=== PATIENT | male | born 1990 | race Caucasian/White ===

== ENCOUNTER 2019-07-15 14:00 | Inpatient (IN) | payer OTHER ==
[~2019-07-15 14:00] MED LIST: Acetaminophen 1,000 MG/100 ML Infusion Bottle IV ONE; Dexamethasone 4 MG/ML 5 ML MDV IVPUSH ONE; Diatrizoate Meglumine/Diatrizoate Sodium 37% 30 ML Bottle PO ONE; Glycopyrrolate 0.2 MG/ML 5 ML MDV IV ONE; HYDROmorphone 2 MG/ML SDV IV ONE; Iopamidol 755 Mg/ML 100 ML Bottle IV ONE; Ketamine 500 mg/10 ML MDV IV ONE; Lactated Ringers 1,000 ML IV ONE; Midazolam 1 MG/ML 2 ML SDV IV ONE; Ondansetron 4 MG/2 ML SDV IVPUSH ONE; Phenylephrine 1% 10 MG/ML SDV IV ONE; Propofol 200 MG/20 ML SDV IV ONE; Rocuronium 50 MG/5 ML Vial IV ONE; Succinylcholine 200 MG/10 ML MDV IV ONE; fentaNYL 100 MCG/2 ML SDV IV ONE
[2019-07-15] MEDS ORDERED: Ertapenem 1 GM in Sodium Chloride 0.9% 50 ML IV ONE ×6 (14:13→15:00)
[2019-07-15] MEDS: Lactated Ringers 1,000 ML IV SCH ×2 (14:30→20:32)
--- NOTE | 2019-07-15 14:41 | CT ---
INDICATION: Right lower quadrant abdominal pain times 6 days, low grade fever, white count 16,000. CT ABDOMEN AND PELVIS WITH CONTRAST: Spiral 3.75 mm axial sections were obtained through the abdomen and pelvis with oral and IV contrast (87 mL Isovue 370 at 2.5 mL/second), with sagittal and coronal reconstructions, 07/15/19 - no comparisons. Total exam DLP = 585.49 mGy-cm. The lower lung hicks and pleural spaces visualized appeared normal. The upper abdominal organs, including the liver, gallbladder, adrenals, kidneys , spleen, and pancreas appeared normal. No dilatation of the common bile duct was noted. No evidence of free air or definite bowel obstruction was identified, except at the appendix, which is markedly enlarged with periappendiceal fat stranding extending from the appendix to the pericolic gutter and into the pelvis with some very minimal fluid in the posterior pelvis. Findings are compatible with appendicitis with a 15 mm appendicolith and a 32 mm transverse diameter appendix. The length of the appendix is approximately 74 mm. Findings are felt to be compatible with appendicitis and fairly localized peritonitis. No other organomegaly, mass lesions, or free fluid collections were identified. No free air was seen. No abscess was identified. Urinary bladder was unremarkable. IMPRESSION: Findings are compatible with acute appendicitis with appendicolith and mostly localized peritonitis, although some minimal free fluid is noted in the pelvis with fat stranding extending into the pericolic gutter. Report was called to Dr. Giovani Quick and Adrienne Hargrove NP at approximately 1348 hours on 07/15/19. [facility]ITALNoah
--- NOTE | 2019-07-15 16:07 | PCM.HP.2 ---
H&P History of Present Illness - General Date of Service: 07/15/19 Admit Problem/Dx: Admission Diagnosis/Problem Admission Diagnosis/Problem Appendicitis - History of Present Illness Initial Comments - Free Text/Narative: 28 yo wm with a 6 day hx of abd discomfort. Located primarily in the RLQ. Attributed to constipation. Seen in clinic and was noted to have an elevated wbc. CT scan demonstrates an inflammed appendix and fecalith. There was no evidence of any overt abscess. Does note some fever, chills. Pain is excerbated by motion. Right Lower Abdomen Pain Score (Numeric/FACES): 7 - Related Data Allergies/Adverse Reactions: Allergies Allergy/AdvReac Type Severity Reaction Status Date / Time No Known Allergies Allergy Verified 07/15/19 12:50 Past Medical History - Past Surgical History HEENT Surgical History: Reports: Other (See Below) Other HEENT Surgeries/Procedures: tubes in ears as a kid Musculoskeletal Surgical History: Reports: Other (See Below) Other Musculoskeletal Surgeries/Procedures:: fx right clavical Social & Family History - Family History Family Medical History: Noncontributory H&P Review of Systems - Review of Systems: Review Of Systems: See Below General: Reports: Fever, Chills HEENT: Reports: No Symptoms Pulmonary: Reports: No Symptoms Cardiovascular: Reports: No Symptoms Gastrointestinal: Reports: Abdominal Pain, Constipation Musculoskeletal: Reports: Back Pain Skin: Reports: No Symptoms Psychiatric: Reports: No Symptoms Neurological: Reports: No Symptoms Exam - Exam Exam: See Below () - Vital Signs Vital Signs: Last Vital Signs Temp 98.7 F 07/15/19 14:00 Pulse 112 H 07/15/19 14:00 Resp 18 07/15/19 14:00 BP 125/89 07/15/19 14:00 Pulse Ox 95 07/15/19 14:00 Weight: 77.746 kg - Exam General: Alert, Oriented Lungs: Clear to Auscultation, Normal Respiratory Effort Cardiovascular: Regular Rate, Regular Rhythm GI/Abdominal Exam: Normal Bowel Sounds, Tender Back Exam: Normal Inspection Skin: Warm, Dry, Intact *Q Meaningful Use (ADM) - VTE *Q VTE Pharmacological Contraindications *Q: Patient Scheduled Surgery - Problem List (1) Acute appendicitis SNOMED Code(s): 10561850 ICD Code: K35.80 - UNSPECIFIED ACUTE APPENDICITIS Status: Acute Current Visit: Yes Qualifiers: Acute appendicitis type: with localized peritonitis Appendicitis gangrene presence: unspecified whether gangrene present Appendicitis perforation presence: unspecified whether perforation present Appendicitis abscess presence: unspecified whether abscess present Qualified Code(s): K35.30 - Acute appendicitis with localized peritonitis, without perforation or gangrene Problem List Initiated/Reviewed/Updated: Yes Orders Last 24hrs: Active Orders 24 hr Category Date Time Status Patient Status [ADT] Routine ADT 07/15/19 14:13 Active Patient to Empty Bladder [RC] ASDIRECTED Care 07/15/19 14:13 Active RT Incentive Spirometry [RC] ASDIRECTED Care 07/15/19 14:13 Active Verify Patient Consent Obtain [RC] ASDIRECTED Care 07/15/19 14:13 Active Nothing Per Oral Diet [DIET] Diet 07/15/19 Lunch Ordered Lactated Ringers [Ringers, Lactated] 1,000 ml Med 07/15/19 14:15 Active IV ASDIRECTED Sequential Compression Device [OM.PC] Routine Oth 07/15/19 14:13 Ordered Resuscitation Status Routine Resus Stat 07/15/19 14:13 Ordered Medication Orders Lactated Ringer's (Ringers, Lactated) 1,000 mls @ 150 mls/hr IV ASDIRECTED [facility] Assessment/Plan Comment:: appendectomy. will start with lap approach if necessary will convert to an open procedure. procedure and risks explained to the patient to include bleeding, infection conversion to open. He expressed understanding and asks us to proceed.
[2019-07-15] MEDS ORDERED: Morphine 2 MG/ML Syringe IVPUSH PRN (16:16)
[2019-07-15] MEDS ORDERED: Bupivacaine 0.5% 30 ML SDV INJECT ONE (17:32)
[2019-07-15] MEDS ORDERED: Lidocaine 1% with EPINEPHrine 1:100,000 20 ML MDV INJECT ONE (17:32)
--- NOTE | 2019-07-15 19:00 | PCM.OPNOTE ---
- General Post-Op/Procedure Note Date of Surgery/Procedure: 07/15/19 Operative Procedure(s): appendectomy Findings: ruptured retrocecal appendix Pre Op Diagnosis: acute appendicitis Post-Op Diagnosis: ruptured appendix Anesthesia Technique: General ET Tube, Local (5 ml 1 % lido with epi/0.5% buvipcaine) Primary Surgeon: Giovani Quick Anesthesia Provider: Janet Mckeon Pathology: appendix Fluid Replacement, Intraop: 1,600 EBL in mLs: 75 Surgical Drain/Tube Type: Pradeep Drain Complications: had to be converted to open due to adhesions Condition: Good Free Text/Narrative:: see dictation
[2019-07-15] MEDS ORDERED: Acetaminophen 1,000 MG in Premix Bag 1 BAG IV SCH (20:00)
[2019-07-15] MEDS: HYDROmorphone 2 MG/ML SDV IVPUSH PRN (21:15)
--- NOTE | 2019-07-16 01:17 | OR ---
DATE OF OPERATION: 07/15/2019 SURGEON: Giovani Quick MD PROCEDURE PERFORMED: Appendectomy. INDICATIONS FOR PROCEDURE: This is a 28-year-old white male, who presents with a 6-day history of right lower quadrant abdominal pain, leukocytosis, and evidence of acute appendicitis on CT scan. CT scan did not demonstrate any evidence of abscess. The patient was offered and accepted laparoscopic appendectomy with the understanding that we may have to convert to open if inflammation was severe enough. DESCRIPTION OF OPERATION: After an excellent general anesthetic was administered via endotracheal tube, the patient was prepped and draped in the usual sterile manner. A 1:1 mixture of 1% lidocaine with epinephrine, and 0.5% bupivacaine was used to infiltrate our trocar sites. We started at the level of the umbilicus, and after infiltration a small vertical midline incision was carried out. Blunt dissection was carried out exposing the midline fascia. Two stay sutures of 0 Vicryl were placed on either side and the fascia was elevated. An incision was made through the midline, and after entering the abdominal cavity, a 10.5 mm Fe trocar was inserted. The patient's abdomen was insufflated to 15 mmHg. A 5 mm port was placed approximately 3 cm below the periumbilical site. An additional port was placed in the right lower quadrant, following technique was used. Full thickness infiltration was carried out. Small stab incision was made in the skin after infiltrating our local. A total of 5 mL was used and the trocars were inserted. The cecum was readily identified as well as the base of the appendix. We were able to grasp the base of the appendix and careful dissection was carried out laterally. We were able to mobilize approximately 2 cm of the appendix. We did encounter some pus. Beyond this point, attempts to mobilize the appendix were not successful due to the adhesions. At this point, it became readily apparent that we would have to convert to open. The pneumoperitoneum was released. The umbilical defect was closed with a [id number] 0 Vicryl and 2 stay sutures close to each other. An incision was then made over McBurney's point using a #15 scalpel blade. The underlying subcu fat was divided using electrocautery. The fascia covering the external oblique was exposed. This was incised, and the muscle fibers were split in the direction of the fibers. The underlying fascia and the internal oblique were exposed. The process was repeated. The peritoneum was exposed, incised, and the abdominal cavity was entered. We were able at this point to insert a finger and gently mobilized a markedly inflamed appendix, delivered into the operative field. In the process of doing this, there was some bleeding from what appeared to be the mesoappendix. This was able to be controlled with a clamp. The Endo-CARLOS with 2.5 mm load was then fired across the base of the appendix. Several what appeared to be bleeding points were controlled with a [id number] 3-0 Vicryl. After ensuring excellent hemostasis, the abdominal cavity and pelvis were then irrigated until clear. A 5 mm round Pradeep drain was then placed in the right colic gutter and down into the pelvis, and exited out through the inferior trocar port in the midline, was sewn into position with a 3- 0 Vicryl. The fascia overlying the peritoneum and underlying fascia covering the transversalis was closed with a running 0 Vicryl, and then the overlying 2 fascial layers were approximated again with 0 Vicryl. [place] were used to approximate the skin in the largest incisions, one by the periumbilical area and in the right lower quadrant. These were then packed with Betadine-soaked gauze. A staple was used to close the 5 mm port that was placed in the right lower quadrant. Dressing was applied. Needle, sponge, and instrument counts were reported as correct. The patient was taken to recovery room in good condition. /[id number] FAITH/MARLON
[2019-07-16] MEDS: Lactated Ringers 1,000 ML IV SCH ×3 (02:38→18:06)
[2019-07-16] MEDS: HYDROmorphone 2 MG/ML SDV IVPUSH PRN ×4 (02:50→20:30)
[2019-07-16] MEDS ORDERED: Lidocaine 2% HCl 6 ML JEL.PF.APP ONE (03:46)
[2019-07-16] MEDS: Acetaminophen 1,000 MG in Premix Bag 1 BAG IV SCH ×3 (06:05)
--- NOTE | 2019-07-16 09:22 | PCM.SURGPN ---
- General Info Date of Service: 07/16/19 POD#: 1 Functional Status: Reports: Pain Controlled, Urinating (had to be straight cathed good urine volume ), Incentive Spirometry - Review of Systems General: Denies: Fever HEENT: Reports: Other (dry) Pulmonary: Reports: No Symptoms Cardiovascular: Reports: No Symptoms Gastrointestinal: Reports: Abdominal Pain. Denies: Flatus Genitourinary: Reports: No Symptoms - Patient Data Vitals - Most Recent: Last Vital Signs Temp 97.6 F 07/16/19 07:58 Pulse 84 07/16/19 07:58 Resp 16 07/16/19 07:58 BP 123/80 07/16/19 07:58 Pulse Ox 97 07/16/19 07:58 Weight - Most Recent: 77.746 kg I&O - Last 24 Hours: Intake & Output 07/15/19 07/16/19 07/16/19 22:59 06:59 14:59 Intake Total 1860 1261 Output Total 725 30 Balance 1860 536 -30 Lab Results Last 24 Hrs: Laboratory Results - last 24 hr 07/16/19 07/16/19 Range/Units 06:15 06:15 WBC 17.4 H (4.5-12.0) X10-3/uL RBC 4.45 (4.30-5.75) x10(6)uL Hgb 12.3 L (13.5-17.8) g/dL Hct 35.5 (30.0-51.3) % MCV 79.7 L (80-96) fL MCH 27.6 L (27.7-33.6) pg MCHC 34.6 (32.2-35.4) g/dL RDW 11.7 (11.5-15.5) % Plt Count 260 (125-369) X10(3)uL MPV 8.4 (7.4-10.4) fL Add Manual Diff Yes Neutrophils % (Manual) 81 (46-82) % Band Neutrophils % 3 (0-6) % Lymphocytes % (Manual) 5 L (13-37) % Monocytes % (Manual) 11 (4-12) % Sodium 135 (135-145) mmol/L Potassium 4.6 (3.5-5.3) mmol/L Chloride 98 L (100-110) mmol/L Carbon Dioxide 29 (21-32) mmol/L BUN 9 (7-18) mg/dL Creatinine 1.0 (0.70-1.30) mg/dL Est Cr Clr Drug Dosing 111.94 mL/min Estimated GFR (MDRD) > 60 (>60) BUN/Creatinine Ratio 9.0 (9-20) Glucose 124 H (80-116) mg/dL Calcium 8.8 (8.6-10.2) mg/dL Med Orders - Current: Current Medications Hydromorphone HCl (Dilaudid) 2 mg IVPUSH Q1H PRN PRN Reason: Pain (severe 7-10) Last Admin: 07/16/19 08:52 Dose: 2 mg Lactated Ringer's (Ringers, Lactated) 1,000 mls @ 150 mls/hr IV ASDIRECTED [facility] Last Admin: 07/16/19 02:38 Dose: 150 mls/hr Ertapenem 1 gm/ Sodium (Chloride) 50 mls @ 100 mls/hr IV Q24H [facility] Acetaminophen 1,000 mg/ Premix 100 mls @ 400 mls/hr IV Q6H [facility] Stop: 07/17/19 00:01 Last Admin: 07/16/19 06:05 Dose: 400 mls/hr Ondansetron HCl (Zofran) 4 mg IVPUSH Q6H PRN PRN Reason: Nausea/Vomiting Discontinued Medications Bupivacaine HCl (Marcaine 0.5%) 10 ml INJECT .STK-MED ONE Stop: 07/15/19 17:33 Last Admin: 07/15/19 17:32 Dose: 10 ml Diatrizoate Meglum/Diatrizoate Sod (Gastrografin 37%) 30 ml PO . DIRECTED ONE Stop: 07/15/19 12:52 Last Admin: 07/15/19 13:34 Dose: 30 ml Ertapenem 1 gm/ Sodium (Chloride) 50 mls @ 100 mls/hr IV ONETIME ONE Stop: 07/15/19 15:29 Last Admin: 07/15/19 16:00 Dose: 100 mls/hr Acetaminophen 1,000 mg/ Premix 100 mls @ 400 mls/hr IV Q6H [facility] Stop: 07/16/19 20:01 Last Admin: 07/15/19 22:34 Dose: Not Given Iopamidol (Isovue-370 (76%)) 100 ml IV . DIRECTED ONE Stop: 07/15/19 12:52 Last Admin: 07/15/19 13:34 Dose: 87 ml Lidocaine HCl (Glydo) 6 ml .XX STAT ONE Stop: 07/16/19 03:47 Last Admin: 07/16/19 04:00 Dose: 6 ml Lidocaine/Epinephrine (Xylocaine 1% With Epinephrine 1:100,000) 10 ml INJECT .STK-MED ONE Stop: 07/15/19 17:33 Last Admin: 07/15/19 17:32 Dose: 10 ml Morphine Sulfate (Morphine) 1 mg IVPUSH Q1H PRN PRN Reason: Pain - Exam Wound/Incisions: Drainage (of betadine no bleeding ) General: Alert, Oriented Lungs: Clear to Auscultation, Normal Respiratory Effort Cardiovascular: Regular Rate, Regular Rhythm GI/Abdominal Exam: Tender (over incision site ), Abnormal Bowel Sounds ( hypoactive ) Skin: Warm, Dry, Intact - Problem List & Annotations (1) Acute appendicitis SNOMED Code(s): 44373499 Code(s): K35.80 - UNSPECIFIED ACUTE APPENDICITIS Status: Acute Current Visit: Yes Qualifiers: Acute appendicitis type: with localized peritonitis Appendicitis gangrene presence: unspecified whether gangrene present Appendicitis perforation presence: unspecified whether perforation present Appendicitis abscess presence: unspecified whether abscess present Qualified Code(s): K35.30 - Acute appendicitis with localized peritonitis, without perforation or gangrene - Problem List Review Problem List Initiated/Reviewed/Updated: Yes - My Orders Last 24 Hours: Active Orders 24 hr Category Date Time Status Patient Status [ADT] Routine ADT 07/15/19 14:13 Active Ambulate [RC] .TID Care 07/15/19 18:53 Active Drain Management [RC] QSHIFT Care 07/15/19 18:54 Active Head of Bed Elevation [RC] ASDIRECTED Care 07/15/19 18:53 Active Notify Provider Vital Signs [RC] PRN Care 07/15/19 18:54 Active Oxygen Therapy [RC] PRN Care 07/15/19 18:53 Active RT Incentive Spirometry [RC] ASDIRECTED Care 07/15/19 14:13 Active RT Incentive Spirometry [RC] Q2HWA Care 07/15/19 18:53 Active Urinary Catheter Assessment [RC] QSHIFT Care 07/16/19 03:45 Active Urinary Catheter Insertion [Insert Urinary Catheter] [ Care 07/16/19 03:44 Ordered OM.PC] Stat Vital Signs [RC] Q4HR Care 07/15/19 18:53 Active Nothing Per Oral Diet [DIET] Diet 07/15/19 Lunch Active Acetaminophen [Ofirmev] 1,000 mg Med 07/16/19 00:00 Active Premix Bag 1 bag IV Q6H Ertapenem [INVanz] 1 gm Med 07/16/19 16:00 Active Sodium Chloride 0.9% [Normal Saline] 50 ml IV Q24H HYDROmorphone [Dilaudid] Med 07/15/19 18:53 Active 2 mg IVPUSH Q1H PRN Lactated Ringers [Ringers, Lactated] 1,000 ml Med 07/15/19 14:15 Active IV ASDIRECTED Ondansetron [Zofran] Med 07/15/19 18:53 Active 4 mg IVPUSH Q6H PRN Sequential Compression Device [OM.PC] Routine Oth 07/15/19 14:13 Ordered Resuscitation Status Routine Resus Stat 07/15/19 14:13 Ordered Medication Orders Hydromorphone HCl (Dilaudid) 2 mg IVPUSH Q1H PRN PRN Reason: Pain (severe 7-10) Last Admin: 07/16/19 08:52 Dose: 2 mg Admin: 07/16/19 02:50 Dose: 2 mg Admin: 07/15/19 21:15 Dose: 2 mg Lactated Ringer's (Ringers, Lactated) 1,000 mls @ 150 mls/hr IV ASDIRECTED [facility] Last Admin: 07/16/19 02:38 Dose: 150 mls/hr Infusion: 07/16/19 02:38 Dose: 150 mls/hr Admin: 07/15/19 20:32 Dose: 150 mls/hr Infusion: 07/15/19 20:32 Dose: 150 mls/hr Admin: 07/15/19 14:30 Dose: 150 mls/hr Ertapenem 1 gm/ Sodium (Chloride) 50 mls @ 100 mls/hr IV Q24H [facility] Acetaminophen 1,000 mg/ Premix 100 mls @ 400 mls/hr IV Q6H [facility] Stop: 07/17/19 00:01 Last Admin: 07/16/19 06:05 Dose: 400 mls/hr Infusion: 07/16/19 00:15 Dose: 400 mls/hr Admin: 07/16/19 00:00 Dose: 400 mls/hr Ondansetron HCl (Zofran) 4 mg IVPUSH Q6H PRN PRN Reason: Nausea/Vomiting - Assessment Assessment (Free Text/Narrative):: pod #1 unremarkable exam given clinical scenario - Plan Plan (Free Text/Narrative):: continue iv fluids antibiotics ice chips no advancement of diet will start toradol
[2019-07-16] MEDS ORDERED: Lactated Ringers 1,000 ML IV ONE (09:35)
[2019-07-16] MEDS: Ketorolac 30 MG/ML SDV IVPUSH SCH ×3 (10:14→21:45)
[2019-07-16] MEDS ORDERED: Lidocaine 2% HCl 6 ML JEL.PF.APP MM ONE (11:37)
[2019-07-16] MEDS: Ertapenem 1 GM in Sodium Chloride 0.9% 50 ML IV SCH (15:56)
[2019-07-16] MEDS: Ondansetron 4 MG/2 ML SDV IVPUSH PRN (17:42)
[2019-07-17] MEDS: Lactated Ringers 1,000 ML IV SCH ×2 (00:41→07:38)
[2019-07-17] MEDS: Ketorolac 30 MG/ML SDV IVPUSH SCH ×4 (03:30→21:46)
[2019-07-17] MEDS: HYDROmorphone 2 MG/ML SDV IVPUSH PRN (04:48)
[2019-07-17] MEDS ORDERED: Lactated Ringers 1,000 ML IV ONE (06:17)
--- NOTE | 2019-07-17 09:44 | PCM.SURGPN ---
- General Info Date of Service: 07/17/19 POD#: 2 Functional Status: Reports: Pain Controlled, Ambulating, Incentive Spirometry - Review of Systems Pulmonary: Reports: No Symptoms Cardiovascular: Reports: No Symptoms Gastrointestinal: Reports: Abdominal Pain, Flatus (reports a little flatus ) Skin: Reports: No Symptoms Neurological: Reports: No Symptoms - Patient Data Vitals - Most Recent: Last Vital Signs Temp 99 F 07/17/19 08:00 Pulse 104 H 07/17/19 08:00 Resp 24 H 07/17/19 08:00 BP 128/86 07/17/19 08:00 Pulse Ox 94 L 07/17/19 08:00 Weight - Most Recent: 77.746 kg I&O - Last 24 Hours: Intake & Output 07/16/19 07/17/19 07/17/19 22:59 06:59 14:59 Intake Total 1090 1244 Output Total 175 230 50 Balance 915 1014 -50 Lab Results Last 24 Hrs: Laboratory Results - last 24 hr 07/17/19 Range/Units 06:20 WBC 13.2 H (4.5-12.0) X10-3/uL RBC 4.30 (4.30-5.75) x10(6)uL Hgb 11.8 L (13.5-17.8) g/dL Hct 34.9 (30.0-51.3) % MCV 81.1 (80-96) fL MCH 27.4 L (27.7-33.6) pg MCHC 33.7 (32.2-35.4) g/dL RDW 12.0 (11.5-15.5) % Plt Count 298 (125-369) X10(3)uL MPV 8.4 (7.4-10.4) fL Neut % (Auto) 80.1 (46-82) % Lymph % (Auto) 9.3 L (13-37) % [place] % (Auto) 8.5 (4-12) % Eos % (Auto) 0 L (1.0-5.0) % Baso % (Auto) 2 (0-2) % Neut # (Auto) 10.7 H (1.6-8.3) # Lymph # (Auto) 1.2 (0.6-5.0) # [place] # (Auto) 1.1 (0.0-1.3) # Eos # (Auto) 0.0 (0.0-0.8) # Baso # (Auto) 0.2 (0.0-0.2) # Med Orders - Current: Current Medications Ertapenem 1 gm/ Sodium (Chloride) 50 mls @ 100 mls/hr IV Q24H [facility] Last Admin: 07/16/19 15:56 Dose: 100 mls/hr Potassium Chloride/Dextrose/Sod Cl (D5 1/2 Ns W/ 20 Meq/L Kcl) 1,000 mls @ 150 mls/hr IV ASDIRECTED [facility] Ketorolac Tromethamine (Toradol) 30 mg IVPUSH Q6H [facility] Stop: 07/21/19 09:23 Last Admin: 07/17/19 03:30 Dose: 30 mg Ondansetron HCl (Zofran) 4 mg IVPUSH Q6H PRN PRN Reason: Nausea/Vomiting Last Admin: 07/16/19 17:42 Dose: 4 mg Discontinued Medications Bupivacaine HCl (Marcaine 0.5%) 10 ml INJECT .STK-MED ONE Stop: 07/15/19 17:33 Last Admin: 07/15/19 17:32 Dose: 10 ml Diatrizoate Meglum/Diatrizoate Sod (Gastrografin 37%) 30 ml PO . DIRECTED ONE Stop: 07/15/19 12:52 Last Admin: 07/15/19 13:34 Dose: 30 ml Hydromorphone HCl (Dilaudid) 2 mg IVPUSH Q1H PRN PRN Reason: Pain (severe 7-10) Last Admin: 07/17/19 04:48 Dose: 2 mg Lactated Ringer's (Ringers, Lactated) 1,000 mls @ 150 mls/hr IV ASDIRECTED [facility] Last Admin: 07/17/19 07:38 Dose: 150 mls/hr Ertapenem 1 gm/ Sodium (Chloride) 50 mls @ 100 mls/hr IV ONETIME ONE Stop: 07/15/19 15:29 Last Admin: 07/15/19 16:00 Dose: 100 mls/hr Acetaminophen 1,000 mg/ Premix 100 mls @ 400 mls/hr IV Q6H [facility] Stop: 07/16/19 20:01 Last Admin: 07/15/19 22:34 Dose: Not Given Acetaminophen 1,000 mg/ Premix 100 mls @ 400 mls/hr IV Q6H [facility] Stop: 07/17/19 00:01 Last Admin: 07/16/19 06:05 Dose: 400 mls/hr Lactated Ringer's (Ringers, Lactated) 1,000 mls @ 999 mls/hr IV BOLUS ONE Stop: 07/16/19 10:35 Last Admin: 07/16/19 09:57 Dose: 999 mls/hr Lactated Ringer's (Ringers, Lactated) 1,000 mls @ 999 mls/hr IV BOLUS ONE Stop: 07/17/19 07:17 Last Admin: 07/17/19 06:32 Dose: 999 mls/hr Iopamidol (Isovue-370 (76%)) 100 ml IV . DIRECTED ONE Stop: 07/15/19 12:52 Last Admin: 07/15/19 13:34 Dose: 87 ml Lidocaine HCl (Glydo) 6 ml .XX STAT ONE Stop: 07/16/19 03:47 Last Admin: 07/16/19 04:00 Dose: 6 ml Lidocaine HCl (Glydo) 6 ml MM ONETIME ONE Stop: 07/16/19 11:38 Last Admin: 07/16/19 12:08 Dose: 6 ml Lidocaine/Epinephrine (Xylocaine 1% With Epinephrine 1:100,000) 10 ml INJECT .STK-MED ONE Stop: 07/15/19 17:33 Last Admin: 07/15/19 17:32 Dose: 10 ml Morphine Sulfate (Morphine) 1 mg IVPUSH Q1H PRN PRN Reason: Pain - Exam Wound/Incisions: No Drainage, Other (dressing changed wound is clean and dry no erythema ) General: Alert, Oriented, Other (reports nightmares ) Lungs: Clear to Auscultation, Decreased Breath Sounds. No: Crackles, Rales, Rhonchi Cardiovascular: Regular Rate, Regular Rhythm GI/Abdominal Exam: Tender (over incisionn ), Abnormal Bowel Sounds (hypoactive bowel sounds ) Skin: Warm, Dry, Intact - Problem List & Annotations (1) Acute appendicitis SNOMED Code(s): 16349131 Code(s): K35.80 - UNSPECIFIED ACUTE APPENDICITIS Status: Acute Current Visit: Yes Annotation/Comment:: ruputured retrocecal Qualifiers: Acute appendicitis type: with localized peritonitis Appendicitis gangrene presence: with gangrene Appendicitis perforation presence: with perforation Appendicitis abscess presence: with abscess Qualified Code(s): K35.31 - Acute appendicitis with localized peritonitis and gangrene, without perforation; K35.33 - Acute appendicitis with perforation and localized peritonitis, with abscess - Problem List Review Problem List Initiated/Reviewed/Updated: Yes - My Orders Last 24 Hours: Active Orders 24 hr Category Date Time Status Rene Catheter Insertion [Insert Urinary Catheter] [OM. Care 07/16/19 11:45 Ordered PC] Q24H [facility] 07/16/19 11:38 Active BASIC METABOLIC PANEL,BMP [CHEM] AM Lab 07/18/19 05:11 Ordered CBC WITH AUTO DIFF [HEME] AM Lab 07/18/19 05:11 Ordered Dextrose 5%-1/2 Normal Saline with KCl 20 mEq @ 150 mL/ Med 07/17/19 09:45 Ordered Hr (1000 mL) D5 1/2 NS w/ 20 mEq/L KCl 1,000 ml IV ASDIRECTED Ertapenem [INVanz] 1 gm Med 07/16/19 16:00 Active Sodium Chloride 0.9% [Normal Saline] 50 ml IV Q24H Ketorolac [Toradol] Med 07/16/19 09:30 Active 30 mg IVPUSH Q6H Morphine Med 07/17/19 09:38 Ordered 2 mg IVPUSH Q2H PRN Medication Orders Ertapenem 1 gm/ Sodium (Chloride) 50 mls @ 100 mls/hr IV Q24H [facility] Last Admin: 07/16/19 15:56 Dose: 100 mls/hr Potassium Chloride/Dextrose/Sod Cl (D5 1/2 Ns W/ 20 Meq/L Kcl) 1,000 mls @ 150 mls/hr IV ASDIRECTED [facility] Ketorolac Tromethamine (Toradol) 30 mg IVPUSH Q6H [facility] Stop: 07/21/19 09:23 Last Admin: 07/17/19 03:30 Dose: 30 mg Admin: 07/16/19 21:45 Dose: 30 mg Admin: 07/16/19 15:56 Dose: 30 mg Admin: 07/16/19 10:14 Dose: 30 mg Ondansetron HCl (Zofran) 4 mg IVPUSH Q6H PRN PRN Reason: Nausea/Vomiting Last Admin: 07/16/19 17:42 Dose: 4 mg - Assessment Assessment (Free Text/Narrative):: white count is down is ambulating quite frequently with 1000 ft every time. his urine output is down and required a bolus which probably explains the mild increase in heart rate. wound is clean and dry. IS volumes could be better but breath sounds are clear. - Plan Plan (Free Text/Narrative):: recheck labs in am continue rene anticipate drain out tomorrow, hopefully will be able to remove rene as well if uo stablizes will change IV fluid to D51/2NS with KCl will stop dilaudid start Morphine neb for breath sounds
[2019-07-17] MEDS: Pantoprazole 40 MG Vial IVPUSH SCH (10:20)
[2019-07-17] MEDS: Morphine 2 MG/ML Syringe IVPUSH PRN ×3 (10:28→20:13)
[2019-07-17] MEDS: Albuterol/Ipratropium 3.0-0.5 MG/3 ML Neb Soln NEB SCH ×3 (10:31→21:45)
[2019-07-17] MEDS ORDERED: Lidocaine 2% HCl 6 ML JEL.PF.APP ONE (11:09)
[2019-07-17] MEDS: Ondansetron 4 MG/2 ML SDV IVPUSH PRN (12:14)
[2019-07-17] MEDS: D5 1/2 NS w/ 20 mEq/L KCl 1,000 ML IV SCH ×2 (13:59→22:27)
[2019-07-17] MEDS: Ertapenem 1 GM in Sodium Chloride 0.9% 50 ML IV SCH (15:53)
[2019-07-18] MEDS: Morphine 2 MG/ML Syringe IVPUSH PRN ×2 (00:59→04:49)
[2019-07-18] MEDS: Albuterol/Ipratropium 3.0-0.5 MG/3 ML Neb Soln NEB SCH ×4 (03:29→21:15)
[2019-07-18] MEDS: Ketorolac 30 MG/ML SDV IVPUSH SCH ×4 (03:29→21:13)
[2019-07-18] MEDS: D5 1/2 NS w/ 20 mEq/L KCl 1,000 ML IV SCH ×3 (05:12→19:43)
--- NOTE | 2019-07-18 08:50 | PCM.SURGPN ---
- General Info Date of Service: 07/18/19 POD#: 3 Functional Status: Reports: Ambulating, Urinating, Incentive Spirometry - Review of Systems Pulmonary: Reports: No Symptoms Cardiovascular: Reports: Other (tachycardia which appears to respond to morphine ) Gastrointestinal: Reports: Other (minimal NGT output ). Denies: Flatus - Patient Data Vitals - Most Recent: Last Vital Signs Temp 98 F 07/18/19 08:00 Pulse 110 H 07/18/19 08:00 Resp 24 H 07/18/19 08:00 BP 125/85 07/18/19 08:00 Pulse Ox 98 07/18/19 08:00 Weight - Most Recent: 77.746 kg I&O - Last 24 Hours: Intake & Output 07/17/19 07/18/19 07/18/19 22:59 06:59 14:59 Intake Total 986 1158 Output Total 515 530 Balance 471 628 Lab Results Last 24 Hrs: Laboratory Results - last 24 hr 07/18/19 07/18/19 Range/Units 06:15 06:15 WBC 10.4 (4.5-12.0) X10-3/uL RBC 3.85 L (4.30-5.75) x10(6)uL Hgb 10.9 L (13.5-17.8) g/dL Hct 31.1 (30.0-51.3) % MCV 80.7 (80-96) fL MCH 28.3 (27.7-33.6) pg MCHC 35.1 (32.2-35.4) g/dL RDW 12.1 (11.5-15.5) % Plt Count 280 (125-369) X10(3)uL MPV 8.0 (7.4-10.4) fL Neut % (Auto) 81.8 (46-82) % Lymph % (Auto) 10.0 L (13-37) % [place] % (Auto) 7.6 (4-12) % Eos % (Auto) 0 L (1.0-5.0) % Baso % (Auto) 0 (0-2) % Neut # (Auto) 8.6 H (1.6-8.3) # Lymph # (Auto) 1.0 (0.6-5.0) # [place] # (Auto) 0.8 (0.0-1.3) # Eos # (Auto) 0.0 (0.0-0.8) # Baso # (Auto) 0.0 (0.0-0.2) # Sodium 140 (135-145) mmol/L Potassium 3.7 (3.5-5.3) mmol/L Chloride 103 D (100-110) mmol/L Carbon Dioxide 30 (21-32) mmol/L BUN 7 (7-18) mg/dL Creatinine 0.9 (0.70-1.30) mg/dL Est Cr Clr Drug Dosing 124.38 mL/min Estimated GFR (MDRD) > 60 (>60) BUN/Creatinine Ratio 7.8 L (9-20) Glucose 147 H (80-116) mg/dL Calcium 7.9 L (8.6-10.2) mg/dL Med Orders - Current: Current Medications Albuterol/Ipratropium (Duoneb 3.0-0.5 Mg/3 Ml) 3 ml NEB Q6H [facility] Last Admin: 07/18/19 03:29 Dose: 3 ml Ertapenem 1 gm/ Sodium (Chloride) 50 mls @ 100 mls/hr IV Q24H [facility] Last Admin: 07/17/19 15:53 Dose: 100 mls/hr Potassium Chloride/Dextrose/Sod Cl (D5 1/2 Ns W/ 20 Meq/L Kcl) 1,000 mls @ 150 mls/hr IV ASDIRECTED [facility] Last Admin: 07/18/19 05:12 Dose: 150 mls/hr Ketorolac Tromethamine (Toradol) 30 mg IVPUSH Q6H [facility] Stop: 07/21/19 09:23 Last Admin: 07/18/19 03:29 Dose: 30 mg Morphine Sulfate (Morphine) 2 mg IVPUSH Q2H PRN PRN Reason: Pain Last Admin: 07/18/19 04:49 Dose: 2 mg Ondansetron HCl (Zofran) 4 mg IVPUSH Q6H PRN PRN Reason: Nausea/Vomiting Last Admin: 07/17/19 12:14 Dose: 4 mg Pantoprazole Sodium (Protonix Iv) 40 mg IVPUSH Q24H [facility] Last Admin: 07/17/19 10:20 Dose: 40 mg Discontinued Medications Bupivacaine HCl (Marcaine 0.5%) 10 ml INJECT .STK-MED ONE Stop: 07/15/19 17:33 Last Admin: 07/15/19 17:32 Dose: 10 ml Diatrizoate Meglum/Diatrizoate Sod (Gastrografin 37%) 30 ml PO . DIRECTED ONE Stop: 07/15/19 12:52 Last Admin: 07/15/19 13:34 Dose: 30 ml Hydromorphone HCl (Dilaudid) 2 mg IVPUSH Q1H PRN PRN Reason: Pain (severe 7-10) Last Admin: 07/17/19 04:48 Dose: 2 mg Lactated Ringer's (Ringers, Lactated) 1,000 mls @ 150 mls/hr IV ASDIRECTED [facility] Last Admin: 07/17/19 07:38 Dose: 150 mls/hr Ertapenem 1 gm/ Sodium (Chloride) 50 mls @ 100 mls/hr IV ONETIME ONE Stop: 07/15/19 15:29 Last Admin: 07/15/19 16:00 Dose: 100 mls/hr Acetaminophen 1,000 mg/ Premix 100 mls @ 400 mls/hr IV Q6H [facility] Stop: 07/16/19 20:01 Last Admin: 07/15/19 22:34 Dose: Not Given Acetaminophen 1,000 mg/ Premix 100 mls @ 400 mls/hr IV Q6H [facility] Stop: 07/17/19 00:01 Last Admin: 07/16/19 06:05 Dose: 400 mls/hr Lactated Ringer's (Ringers, Lactated) 1,000 mls @ 999 mls/hr IV BOLUS ONE Stop: 07/16/19 10:35 Last Admin: 07/16/19 09:57 Dose: 999 mls/hr Lactated Ringer's (Ringers, Lactated) 1,000 mls @ 999 mls/hr IV BOLUS ONE Stop: 07/17/19 07:17 Last Admin: 07/17/19 06:32 Dose: 999 mls/hr Albumin Human (Flexbumin 5%) 250 mls @ 500 mls/hr IV ONETIME ONE Stop: 07/17/19 18:11 Last Admin: 07/17/19 18:40 Dose: 500 mls/hr Iopamidol (Isovue-370 (76%)) 100 ml IV . DIRECTED ONE Stop: 07/15/19 12:52 Last Admin: 07/15/19 13:34 Dose: 87 ml Lidocaine HCl (Glydo) 6 ml .XX STAT ONE Stop: 07/16/19 03:47 Last Admin: 07/16/19 04:00 Dose: 6 ml Lidocaine HCl (Glydo) 6 ml MM ONETIME ONE Stop: 07/16/19 11:38 Last Admin: 07/16/19 12:08 Dose: 6 ml Lidocaine HCl (Glydo) 6 ml .XX ONETIME ONE Stop: 07/17/19 11:10 Last Admin: 07/17/19 11:50 Dose: 6 ml Lidocaine/Epinephrine (Xylocaine 1% With Epinephrine 1:100,000) 10 ml INJECT .STK-MED ONE Stop: 07/15/19 17:33 Last Admin: 07/15/19 17:32 Dose: 10 ml Morphine Sulfate (Morphine) 1 mg IVPUSH Q1H PRN PRN Reason: Pain - Exam Wound/Incisions: Dressing Dry and Intact General: Mild Distress Lungs: Clear to Auscultation, Normal Respiratory Effort Cardiovascular: Regular Rate, Regular Rhythm GI/Abdominal Exam: Tender (over incision ), Abnormal Bowel Sounds (hyppoactive bowel sounds ) - Problem List & Annotations (1) Acute appendicitis SNOMED Code(s): 40299958 Code(s): K35.80 - UNSPECIFIED ACUTE APPENDICITIS Status: Acute Current Visit: Yes Annotation/Comment:: ruputured retrocecal Qualifiers: Acute appendicitis type: with localized peritonitis Appendicitis gangrene presence: with gangrene Appendicitis perforation presence: with perforation Appendicitis abscess presence: with abscess Qualified Code(s): K35.31 - Acute appendicitis with localized peritonitis and gangrene, without perforation; K35.33 - Acute appendicitis with perforation and localized peritonitis, with abscess - Problem List Review Problem List Initiated/Reviewed/Updated: Yes - My Orders Last 24 Hours: Active Orders 24 hr Category Date Time Status Communication Order [RC] ASDIRECTED Care 07/17/19 10:00 Active NG [Gastrointestinal Tube Mgmt] [RC] QSHIFT Care 07/17/19 11:06 Active RT Aerosol Therapy [RC] 10,16,22,04 Care 07/17/19 09:47 Active Albuterol/Ipratropium [DuoNeb 3.0-0.5 MG/3 ML] Med 07/17/19 10:00 Active 3 ml NEB Q6H D5 1/2 NS w/ 20 mEq/L KCl 1,000 ml Med 07/17/19 09:45 Active IV ASDIRECTED Morphine Med 07/17/19 09:38 Active 2 mg IVPUSH Q2H PRN Pantoprazole [ProTONIX IV] Med 07/17/19 10:00 Active 40 mg IVPUSH Q24H Nasogastric Orogastric Tube Insertion [OM.PC] Routine Oth 07/17/19 11:06 Ordered Medication Orders Albuterol/Ipratropium (Duoneb 3.0-0.5 Mg/3 Ml) 3 ml NEB Q6H [facility] Last Admin: 07/18/19 03:29 Dose: 3 ml Admin: 07/17/19 21:45 Dose: 3 ml Admin: 07/17/19 15:52 Dose: 3 ml Admin: 07/17/19 10:31 Dose: 3 ml Ertapenem 1 gm/ Sodium (Chloride) 50 mls @ 100 mls/hr IV Q24H [facility] Last Admin: 07/17/19 15:53 Dose: 100 mls/hr Admin: 07/16/19 15:56 Dose: 100 mls/hr Potassium Chloride/Dextrose/Sod Cl (D5 1/2 Ns W/ 20 Meq/L Kcl) 1,000 mls @ 150 mls/hr IV ASDIRECTED [facility] Last Admin: 07/18/19 05:12 Dose: 150 mls/hr Infusion: 07/18/19 05:08 Dose: 150 mls/hr Admin: 07/17/19 22:27 Dose: 150 mls/hr Infusion: 07/17/19 20:40 Dose: 150 mls/hr Admin: 07/17/19 13:59 Dose: 150 mls/hr Ketorolac Tromethamine (Toradol) 30 mg IVPUSH Q6H [facility] Stop: 07/21/19 09:23 Last Admin: 07/18/19 03:29 Dose: 30 mg Admin: 07/17/19 21:46 Dose: 30 mg Admin: 07/17/19 15:50 Dose: 30 mg Admin: 07/17/19 10:18 Dose: 30 mg Admin: 07/17/19 03:30 Dose: 30 mg Admin: 07/16/19 21:45 Dose: 30 mg Admin: 07/16/19 15:56 Dose: 30 mg Admin: 07/16/19 10:14 Dose: 30 mg Morphine Sulfate (Morphine) 2 mg IVPUSH Q2H PRN PRN Reason: Pain Last Admin: 07/18/19 04:49 Dose: 2 mg Admin: 07/18/19 00:59 Dose: 2 mg Admin: 07/17/19 20:13 Dose: 2 mg Admin: 07/17/19 14:44 Dose: 2 mg Admin: 07/17/19 10:28 Dose: 2 mg Ondansetron HCl (Zofran) 4 mg IVPUSH Q6H PRN PRN Reason: Nausea/Vomiting Last Admin: 07/17/19 12:14 Dose: 4 mg Admin: 07/16/19 17:42 Dose: 4 mg Pantoprazole Sodium (Protonix Iv) 40 mg IVPUSH Q24H [facility] Last Admin: 07/17/19 10:20 Dose: 40 mg - Assessment Assessment (Free Text/Narrative):: uo better NGT output is minimal WBC is normal heart rate is really the sig issue, nursing notes that it does respond to pain medication so 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 - Plan Plan (Free Text/Narrative):: will dc ngt dc rene continue antibiotics will adjust pain meds.
[2019-07-18] MEDS ORDERED: Morphine 2 MG/ML Syringe IVPUSH PRN (09:27)
[2019-07-18] MEDS: Pantoprazole 40 MG Vial IVPUSH SCH (10:27)
[2019-07-18] MEDS ORDERED: Naloxone 0.4 MG/ML SDV IVPUSH PRN (10:41)
[2019-07-18] MEDS: Morphine PF 30 MG/30 ML PCA Vial IV PRN (12:20)
[2019-07-18] MEDS: Levofloxacin/Dextrose 5%-Water 750 MG in Premix Bag 1 BAG IV SCH (15:21)
[2019-07-18] MEDS: metroNIDAZOLE/Normal Saline 500 MG in Premix Bag 1 BAG IV SCH (17:57)
[2019-07-18] MEDS ORDERED: Bisacodyl 10 MG Supp RECTAL ONE (18:33)
--- NOTE | 2019-07-18 18:36 | PCM.SN ---
- Free Text/Narrative Note: CXR done duirng temp spike demonstrated bilateral posterior basal pneumonia. his antibiotic coverage has been broadened. also appears that gas in his colon is pushing up on hid diaphragm. better pain control with the counter caser. will give a doculox to hopefully move the air. continue ambulation, continue IS.
[2019-07-19] MEDS: metroNIDAZOLE/Normal Saline 500 MG in Premix Bag 1 BAG IV SCH ×3 (00:28→16:55)
[2019-07-19] MEDS: Sodium Chloride 0.9% 10 ML Syringe FLUSH PRN ×3 (00:32→21:48)
[2019-07-19] MEDS: D5 1/2 NS w/ 20 mEq/L KCl 1,000 ML IV SCH ×4 (02:28→23:58)
[2019-07-19] MEDS: Morphine PF 30 MG/30 ML PCA Vial IV PRN ×2 (03:27→21:43)
[2019-07-19] MEDS: Albuterol/Ipratropium 3.0-0.5 MG/3 ML Neb Soln NEB SCH ×4 (03:29→21:51)
[2019-07-19] MEDS: Ketorolac 30 MG/ML SDV IVPUSH SCH ×4 (03:29→21:47)
--- NOTE | 2019-07-19 08:28 | PCM.SURGPN ---
- General Info Date of Service: 07/19/19 POD#: 4 (t) Functional Status: Reports: Ambulating, New Symptoms, Incentive Spirometry ( still with low volumes ) - Review of Systems General: Reports: Fever Cardiovascular: Reports: No Symptoms Gastrointestinal: Reports: Abdominal Pain. Denies: Flatus - Patient Data Vitals - Most Recent: Last Vital Signs Temp 100.0 F 07/19/19 04:00 Pulse 102 H 07/19/19 04:00 Resp 20 07/19/19 04:00 BP 130/93 H 07/19/19 04:00 Pulse Ox 96 07/19/19 04:00 Weight - Most Recent: 77.746 kg I&O - Last 24 Hours: Intake & Output 07/18/19 07/19/19 07/19/19 22:59 06:59 14:59 Intake Total 974 1231 Output Total 260 75 Balance 714 1156 Lab Results Last 24 Hrs: Laboratory Results - last 24 hr 07/18/19 Range/Units 21:14 Urine Color Yellow (YELLOW) Urine Appearance Slightly cloudy (CLEAR) Urine pH 5.0 (5.0-6.5) Ur Specific [place] 1.015 (1.010-1.025) Urine Protein Negative (NEGATIVE) mg/dL Urine Glucose (UA) Normal (NORMAL) mg/dL Urine Ketones Negative (NEGATIVE) mg/dL Urine Occult Blood Negative (NEGATIVE) Urine Nitrite Negative (NEGATIVE) Urine Bilirubin Negative (NEGATIVE) Urine Urobilinogen 4 H (NEGATIVE) mg/dL Ur Leukocyte Esterase Small H (NEGATIVE) Urine RBC 0-5 (0-5) Urine WBC 0-5 (0-5) Ur Squamous Epith Cells Occasional (NS,R,O) Urine Bacteria Few H (NS) Urine Mucus Many H (NS) Med Orders - Current: Current Medications Albuterol/Ipratropium (Duoneb 3.0-0.5 Mg/3 Ml) 3 ml NEB Q6H [facility] Last Admin: 07/19/19 03:29 Dose: 3 ml Potassium Chloride/Dextrose/Sod Cl (D5 1/2 Ns W/ 20 Meq/L Kcl) 1,000 mls @ 150 mls/hr IV Q7H [facility] Last Admin: 07/19/19 02:28 Dose: 150 mls/hr Levofloxacin/Dextrose 750 mg/ (Premix) 150 mls @ 100 mls/hr IV Q24H [facility] Last Admin: 07/18/19 15:21 Dose: 100 mls/hr Metronidazole 500 mg/ Premix 100 mls @ 100 mls/hr IV Q8H [facility] Last Admin: 07/19/19 00:28 Dose: 100 mls/hr Ketorolac Tromethamine (Toradol) 30 mg IVPUSH Q6H [facility] Stop: 07/21/19 09:23 Last Admin: 07/19/19 03:29 Dose: 30 mg Morphine Sulfate (Morphine Health Care Social Worker 30 Mg In 30 Ml) 0 mg IV ASDIRECTED PRN; Protocol PRN Reason: Pain (severe 7-10) Last Admin: 07/19/19 03:27 Dose: 30 mg Naloxone HCl (Narcan) 0.4 mg IVPUSH Q2M PRN PRN Reason: Respiratory Distress Ondansetron HCl (Zofran) 4 mg IVPUSH Q6H PRN PRN Reason: Nausea/Vomiting Last Admin: 07/17/19 12:14 Dose: 4 mg Pantoprazole Sodium (Protonix Iv) 40 mg IVPUSH Q24H [facility] Last Admin: 07/18/19 10:27 Dose: 40 mg Sodium Chloride (Saline Flush) 10 ml FLUSH ASDIRECTED PRN PRN Reason: Keep Vein Open Last Admin: 07/19/19 00:32 Dose: 10 ml Discontinued Medications Bisacodyl (Dulcolax) 10 mg RECTAL ONETIME ONE Stop: 07/18/19 18:34 Last Admin: 07/18/19 19:33 Dose: 10 mg Bupivacaine HCl (Marcaine 0.5%) 10 ml INJECT .STK-MED ONE Stop: 07/15/19 17:33 Last Admin: 07/15/19 17:32 Dose: 10 ml Diatrizoate Meglum/Diatrizoate Sod (Gastrografin 37%) 30 ml PO . DIRECTED ONE Stop: 07/15/19 12:52 Last Admin: 07/15/19 13:34 Dose: 30 ml Hydromorphone HCl (Dilaudid) 2 mg IVPUSH Q1H PRN PRN Reason: Pain (severe 7-10) Last Admin: 07/17/19 04:48 Dose: 2 mg Lactated Ringer's (Ringers, Lactated) 1,000 mls @ 150 mls/hr IV ASDIRECTED [facility] Last Admin: 07/17/19 07:38 Dose: 150 mls/hr Ertapenem 1 gm/ Sodium (Chloride) 50 mls @ 100 mls/hr IV ONETIME ONE Stop: 07/15/19 15:29 Last Admin: 07/15/19 16:00 Dose: 100 mls/hr Ertapenem 1 gm/ Sodium (Chloride) 50 mls @ 100 mls/hr IV Q24H [facility] Last Admin: 07/17/19 15:53 Dose: 100 mls/hr Acetaminophen 1,000 mg/ Premix 100 mls @ 400 mls/hr IV Q6H [facility] Stop: 07/16/19 20:01 Last Admin: 07/15/19 22:34 Dose: Not Given Acetaminophen 1,000 mg/ Premix 100 mls @ 400 mls/hr IV Q6H [facility] Stop: 07/17/19 00:01 Last Admin: 07/16/19 06:05 Dose: 400 mls/hr Lactated Ringer's (Ringers, Lactated) 1,000 mls @ 999 mls/hr IV BOLUS ONE Stop: 07/16/19 10:35 Last Admin: 07/16/19 09:57 Dose: 999 mls/hr Lactated Ringer's (Ringers, Lactated) 1,000 mls @ 999 mls/hr IV BOLUS ONE Stop: 07/17/19 07:17 Last Admin: 07/17/19 06:32 Dose: 999 mls/hr Potassium Chloride/Dextrose/Sod Cl (D5 1/2 Ns W/ 20 Meq/L Kcl) 1,000 mls @ 150 mls/hr IV ASDIRECTED [facility] Last Admin: 07/18/19 05:12 Dose: 150 mls/hr Albumin Human (Flexbumin 5%) 250 mls @ 500 mls/hr IV ONETIME ONE Stop: 07/17/19 18:11 Last Admin: 07/17/19 18:40 Dose: 500 mls/hr Iopamidol (Isovue-370 (76%)) 100 ml IV . DIRECTED ONE Stop: 07/15/19 12:52 Last Admin: 07/15/19 13:34 Dose: 87 ml Lidocaine HCl (Glydo) 6 ml .XX STAT ONE Stop: 07/16/19 03:47 Last Admin: 07/16/19 04:00 Dose: 6 ml Lidocaine HCl (Glydo) 6 ml MM ONETIME ONE Stop: 07/16/19 11:38 Last Admin: 07/16/19 12:08 Dose: 6 ml Lidocaine HCl (Glydo) 6 ml .XX ONETIME ONE Stop: 07/17/19 11:10 Last Admin: 07/17/19 11:50 Dose: 6 ml Lidocaine/Epinephrine (Xylocaine 1% With Epinephrine 1:100,000) 10 ml INJECT .STK-MED ONE Stop: 07/15/19 17:33 Last Admin: 07/15/19 17:32 Dose: 10 ml Morphine Sulfate (Morphine) 1 mg IVPUSH Q1H PRN PRN Reason: Pain Morphine Sulfate (Morphine) 2 mg IVPUSH Q2H PRN PRN Reason: Pain Last Admin: 07/18/19 04:49 Dose: 2 mg Morphine Sulfate (Morphine) 1 mg IVPUSH Q1H PRN PRN Reason: Abdominal Pain Last Admin: 07/18/19 10:26 Dose: 1 mg - Exam Wound/Incisions: No Drainage, Other (dressing changed ) General: Alert, Oriented, Cooperative, Other (not as distressed ) Lungs: Clear to Auscultation, Other (breaths sounds not as decreases as yesterday and the weekend ) Cardiovascular: Regular Rate, Regular Rhythm GI/Abdominal Exam: Soft, Tender (over incision ) Skin: Warm, Dry, Intact - Problem List & Annotations (1) Acute appendicitis SNOMED Code(s): 56327768 Code(s): K35.80 - UNSPECIFIED ACUTE APPENDICITIS Status: Acute Current Visit: Yes Annotation/Comment:: ruputured retrocecal Qualifiers: Acute appendicitis type: with localized peritonitis Appendicitis gangrene presence: with gangrene Appendicitis perforation presence: with perforation Appendicitis abscess presence: with abscess Qualified Code(s): K35.31 - Acute appendicitis with localized peritonitis and gangrene, without perforation; K35.33 - Acute appendicitis with perforation and localized peritonitis, with abscess - Problem List Review Problem List Initiated/Reviewed/Updated: Yes - My Orders Last 24 Hours: Active Orders 24 hr Category Date Time Status Cardiac Monitoring [RC] .As Directed Care 07/18/19 10:41 Active Communication Order [RC] STAT Care 07/18/19 10:41 Active DC [place] Catheter [Urinary Catheter Removal] [RC] Per Care 07/18/19 09:26 Active Unit Routine Notify Provider [RC] PRN Care 07/18/19 10:41 Active Oxygen Therapy [RC] ASDIRECTED Care 07/19/19 08:24 Ordered BAGGAGE PORTER HEAD Record [RC] PER UNIT ROUTINE Care 07/18/19 10:41 Active Pulse Oximetry [RC] CONTINUOUS Care 07/18/19 10:41 Active PT Evaluation and Treatment [CONS] Routine Cons 07/19/19 08:22 Ordered Chest 2V [CR] Routine Exams 07/18/19 14:37 Taken D5 1/2 NS w/ 20 mEq/L KCl 1,000 ml Med 07/18/19 12:30 Active IV Q7H Levofloxacin/Dextrose 5%-Water [Levaquin in D5W 750 MG/ Med 07/18/19 14:45 Active 150 ML] 750 mg Premix Bag 1 bag IV Q24H Morphine PF [Morphine BAGGAGE PORTER HEAD 30 MG in 30 ML] Med 07/18/19 10:41 Active See Protocol IV ASDIRECTED PRN Naloxone [Narcan] Med 07/18/19 10:41 Active 0.4 mg IVPUSH Q2M PRN Sodium Chloride 0.9% [Saline Flush] Med 07/19/19 00:23 Active 10 ml FLUSH ASDIRECTED PRN metroNIDAZOLE/Normal Saline [Flagyl 500 MG in NS 100 ML Med 07/18/19 16:30 Active ] 500 mg Premix Bag 1 bag IV Q8H Medication Discontinuation Instructions [OM.PC] Stat Oth 07/18/19 10:41 Ordered Medication Orders Albuterol/Ipratropium (Duoneb 3.0-0.5 Mg/3 Ml) 3 ml NEB Q6H [facility] Last Admin: 07/19/19 03:29 Dose: 3 ml Admin: 07/18/19 21:15 Dose: 3 ml Admin: 07/18/19 17:12 Dose: 3 ml Admin: 07/18/19 10:27 Dose: 3 ml Admin: 07/18/19 03:29 Dose: 3 ml Admin: 07/17/19 21:45 Dose: 3 ml Admin: 07/17/19 15:52 Dose: 3 ml Admin: 07/17/19 10:31 Dose: 3 ml Potassium Chloride/Dextrose/Sod Cl (D5 1/2 Ns W/ 20 Meq/L Kcl) 1,000 mls @ 150 mls/hr IV Q7H [facility] Last Admin: 07/19/19 02:28 Dose: 150 mls/hr Infusion: 07/19/19 02:24 Dose: 150 mls/hr Admin: 07/18/19 19:43 Dose: 150 mls/hr Infusion: 07/18/19 19:01 Dose: 150 mls/hr Admin: 07/18/19 12:20 Dose: 150 mls/hr Levofloxacin/Dextrose 750 mg/ (Premix) 150 mls @ 100 mls/hr IV Q24H [facility] Last Admin: 07/18/19 15:21 Dose: 100 mls/hr Metronidazole 500 mg/ Premix 100 mls @ 100 mls/hr IV Q8H [facility] Last Admin: 07/19/19 00:28 Dose: 100 mls/hr Infusion: 07/18/19 18:57 Dose: 100 mls/hr Admin: 07/18/19 17:57 Dose: 100 mls/hr Ketorolac Tromethamine (Toradol) 30 mg IVPUSH Q6H [facility] Stop: 07/21/19 09:23 Last Admin: 07/19/19 03:29 Dose: 30 mg Admin: 07/18/19 21:13 Dose: 30 mg Admin: 07/18/19 17:12 Dose: 30 mg Admin: 07/18/19 09:21 Dose: 30 mg Admin: 07/18/19 03:29 Dose: 30 mg Admin: 07/17/19 21:46 Dose: 30 mg Admin: 07/17/19 15:50 Dose: 30 mg Admin: 07/17/19 10:18 Dose: 30 mg Admin: 07/17/19 03:30 Dose: 30 mg Admin: 07/16/19 21:45 Dose: 30 mg Admin: 07/16/19 15:56 Dose: 30 mg Admin: 07/16/19 10:14 Dose: 30 mg Morphine Sulfate (Morphine Health Care Social Worker 30 Mg In 30 Ml) 0 mg IV ASDIRECTED PRN; Protocol PRN Reason: Pain (severe 7-10) Last Admin: 07/19/19 03:27 Dose: 30 mg Admin: 07/18/19 12:20 Dose: 30 mg Naloxone HCl (Narcan) 0.4 mg IVPUSH Q2M PRN PRN Reason: Respiratory Distress Ondansetron HCl (Zofran) 4 mg IVPUSH Q6H PRN PRN Reason: Nausea/Vomiting Last Admin: 07/17/19 12:14 Dose: 4 mg Admin: 07/16/19 17:42 Dose: 4 mg Pantoprazole Sodium (Protonix Iv) 40 mg IVPUSH Q24H [facility] Last Admin: 07/18/19 10:27 Dose: 40 mg Admin: 07/17/19 10:20 Dose: 40 mg Sodium Chloride (Saline Flush) 10 ml FLUSH ASDIRECTED PRN PRN Reason: Keep Vein Open Last Admin: 07/19/19 00:32 Dose: 10 ml - Assessment Assessment (Free Text/Narrative):: slightly improved with regards to pulmonary exam. bowel sounds are better. - Plan Plan (Free Text/Narrative):: O2 sats drop will place on continous oxygen. dressing was changed this am.
--- NOTE | 2019-07-19 08:48 | CR ---
INDICATION: Tachypnea, tachycardia, fever. CHEST: PA and lateral views of the chest were obtained, 07/18/19 - no comparisons. Poor inspiration is noted, emphasizing markings. There is a consolidating pneumonia affecting a significant portion of the posterior basilar segment of the left lower lobe. There may also be some less prominent pleural parenchymal change at the right lower lobe posteromedially. Findings are compatible with bilateral pneumonia, most severe on the left in the lower lobes. The heart, mediastinum, and bony thorax were unremarkable. No free air is noted under the hemidiaphragm leaves. IMPRESSION: Bibasilar pleural parenchymal changes, left much greater than right , compatible with consolidating pneumonia and effusion - pleuritis. Report was left on Dr. Gurrola voicemail at approximately 1510 hours on . [place]
[2019-07-19] MEDS: Pantoprazole 40 MG Vial IVPUSH SCH (10:35)
[2019-07-19] MEDS: Levofloxacin/Dextrose 5%-Water 750 MG in Premix Bag 1 BAG IV SCH (15:24)
[2019-07-20] MEDS: metroNIDAZOLE/Normal Saline 500 MG in Premix Bag 1 BAG IV SCH ×3 (00:45→16:51)
[2019-07-20] MEDS: Sodium Chloride 0.9% 10 ML Syringe FLUSH PRN ×2 (00:47→21:43)
[2019-07-20] MEDS: Albuterol/Ipratropium 3.0-0.5 MG/3 ML Neb Soln NEB SCH ×4 (03:36→22:03)
[2019-07-20] MEDS: Ketorolac 30 MG/ML SDV IVPUSH SCH ×4 (03:43→21:40)
[2019-07-20] MEDS: D5 1/2 NS w/ 20 mEq/L KCl 1,000 ML IV SCH ×3 (07:41→22:10)
--- NOTE | 2019-07-20 09:44 | PCM.SURGPN ---
- General Info Date of Service: 07/20/19 POD#: 5 Functional Status: Reports: Pain Controlled, Ambulating, Urinating (has started to mobilize ), Incentive Spirometry (now up above 1500) - Review of Systems General: Denies: Fever Pulmonary: Reports: No Symptoms Cardiovascular: Reports: No Symptoms Gastrointestinal: Denies: Flatus - Patient Data Vitals - Most Recent: Last Vital Signs Temp 98.6 F 07/20/19 00:45 Pulse 94 07/20/19 03:45 Resp 18 07/20/19 03:45 BP 121/78 07/20/19 03:45 Pulse Ox 97 07/20/19 03:45 Weight - Most Recent: 77.746 kg I&O - Last 24 Hours: Intake & Output 07/19/19 07/20/19 07/20/19 22:59 06:59 14:59 Intake Total 1073 1117 Output Total 600 1600 Balance 473 -483 Lab Results Last 24 Hrs: Laboratory Results - last 24 hr 07/20/19 Range/Units 06:03 WBC 10.9 (4.5-12.0) X10-3/uL RBC 3.85 L (4.30-5.75) x10(6)uL Hgb 10.9 L (13.5-17.8) g/dL Hct 31.0 (30.0-51.3) % MCV 80.4 (80-96) fL MCH 28.2 (27.7-33.6) pg MCHC 35.0 (32.2-35.4) g/dL RDW 12.1 (11.5-15.5) % Plt Count 293 (125-369) X10(3)uL MPV 7.6 (7.4-10.4) fL Neut % (Auto) 81.5 (46-82) % Lymph % (Auto) 9.5 L (13-37) % Clare % (Auto) 7.1 (4-12) % Eos % (Auto) 2 (1.0-5.0) % Baso % (Auto) 0 (0-2) % Neut # (Auto) 8.9 H (1.6-8.3) # Lymph # (Auto) 1.0 (0.6-5.0) # Clare # (Auto) 0.8 (0.0-1.3) # Eos # (Auto) 0.2 (0.0-0.8) # Baso # (Auto) 0.0 (0.0-0.2) # Med Orders - Current: Current Medications Albuterol/Ipratropium (Duoneb 3.0-0.5 Mg/3 Ml) 3 ml NEB Q6H [facility] Last Admin: 07/20/19 03:36 Dose: 3 ml Levofloxacin/Dextrose 750 mg/ (Premix) 150 mls @ 100 mls/hr IV Q24H [facility] Last Admin: 07/19/19 15:24 Dose: 100 mls/hr Metronidazole 500 mg/ Premix 100 mls @ 100 mls/hr IV Q8H [facility] Last Admin: 07/20/19 08:53 Dose: 100 mls/hr Potassium Chloride/Dextrose/Sod Cl (D5 1/2 Ns W/ 20 Meq/L Kcl) 1,000 mls @ 50 mls/hr IV Q8H [facility] Last Admin: 07/20/19 07:41 Dose: 125 mls/hr Ketorolac Tromethamine (Toradol) 30 mg IVPUSH Q6H [facility] Stop: 07/21/19 09:23 Last Admin: 07/20/19 03:43 Dose: 30 mg Morphine Sulfate (Morphine Complex Director 30 Mg In 30 Ml) 0 mg IV ASDIRECTED PRN; Protocol PRN Reason: Pain (severe 7-10) Last Admin: 07/19/19 21:43 Dose: 30 mg Naloxone HCl (Narcan) 0.4 mg IVPUSH Q2M PRN PRN Reason: Respiratory Distress Ondansetron HCl (Zofran) 4 mg IVPUSH Q6H PRN PRN Reason: Nausea/Vomiting Last Admin: 07/17/19 12:14 Dose: 4 mg Pantoprazole Sodium (Protonix Iv) 40 mg IVPUSH Q24H [facility] Last Admin: 07/19/19 10:35 Dose: 40 mg Sodium Chloride (Saline Flush) 10 ml FLUSH ASDIRECTED PRN PRN Reason: Keep Vein Open Last Admin: 07/20/19 00:47 Dose: 10 ml Discontinued Medications Bisacodyl (Dulcolax) 10 mg RECTAL ONETIME ONE Stop: 07/18/19 18:34 Last Admin: 07/18/19 19:33 Dose: 10 mg Bupivacaine HCl (Marcaine 0.5%) 10 ml INJECT .STK-MED ONE Stop: 07/15/19 17:33 Last Admin: 07/15/19 17:32 Dose: 10 ml Diatrizoate Meglum/Diatrizoate Sod (Gastrografin 37%) 30 ml PO . DIRECTED ONE Stop: 07/15/19 12:52 Last Admin: 07/15/19 13:34 Dose: 30 ml Hydromorphone HCl (Dilaudid) 2 mg IVPUSH Q1H PRN PRN Reason: Pain (severe 7-10) Last Admin: 07/17/19 04:48 Dose: 2 mg Lactated Ringer's (Ringers, Lactated) 1,000 mls @ 150 mls/hr IV ASDIRECTED [facility] Last Admin: 07/17/19 07:38 Dose: 150 mls/hr Ertapenem 1 gm/ Sodium (Chloride) 50 mls @ 100 mls/hr IV ONETIME ONE Stop: 07/15/19 15:29 Last Admin: 07/15/19 16:00 Dose: 100 mls/hr Ertapenem 1 gm/ Sodium (Chloride) 50 mls @ 100 mls/hr IV Q24H [facility] Last Admin: 07/17/19 15:53 Dose: 100 mls/hr Acetaminophen 1,000 mg/ Premix 100 mls @ 400 mls/hr IV Q6H [facility] Stop: 07/16/19 20:01 Last Admin: 07/15/19 22:34 Dose: Not Given Acetaminophen 1,000 mg/ Premix 100 mls @ 400 mls/hr IV Q6H [facility] Stop: 07/17/19 00:01 Last Admin: 07/16/19 06:05 Dose: 400 mls/hr Lactated Ringer's (Ringers, Lactated) 1,000 mls @ 999 mls/hr IV BOLUS ONE Stop: 07/16/19 10:35 Last Admin: 07/16/19 09:57 Dose: 999 mls/hr Lactated Ringer's (Ringers, Lactated) 1,000 mls @ 999 mls/hr IV BOLUS ONE Stop: 07/17/19 07:17 Last Admin: 07/17/19 06:32 Dose: 999 mls/hr Potassium Chloride/Dextrose/Sod Cl (D5 1/2 Ns W/ 20 Meq/L Kcl) 1,000 mls @ 150 mls/hr IV ASDIRECTED [facility] Last Admin: 07/18/19 05:12 Dose: 150 mls/hr Albumin Human (Flexbumin 5%) 250 mls @ 500 mls/hr IV ONETIME ONE Stop: 07/17/19 18:11 Last Admin: 07/17/19 18:40 Dose: 500 mls/hr Potassium Chloride/Dextrose/Sod Cl (D5 1/2 Ns W/ 20 Meq/L Kcl) 1,000 mls @ 125 mls/hr IV Q7H [facility] Last Admin: 07/19/19 23:58 Dose: 125 mls/hr Iopamidol (Isovue-370 (76%)) 100 ml IV . DIRECTED ONE Stop: 07/15/19 12:52 Last Admin: 07/15/19 13:34 Dose: 87 ml Lidocaine HCl (Glydo) 6 ml .XX STAT ONE Stop: 07/16/19 03:47 Last Admin: 07/16/19 04:00 Dose: 6 ml Lidocaine HCl (Glydo) 6 ml MM ONETIME ONE Stop: 07/16/19 11:38 Last Admin: 07/16/19 12:08 Dose: 6 ml Lidocaine HCl (Glydo) 6 ml .XX ONETIME ONE Stop: 07/17/19 11:10 Last Admin: 07/17/19 11:50 Dose: 6 ml Lidocaine/Epinephrine (Xylocaine 1% With Epinephrine 1:100,000) 10 ml INJECT .STK-MED ONE Stop: 07/15/19 17:33 Last Admin: 07/15/19 17:32 Dose: 10 ml Morphine Sulfate (Morphine) 1 mg IVPUSH Q1H PRN PRN Reason: Pain Morphine Sulfate (Morphine) 2 mg IVPUSH Q2H PRN PRN Reason: Pain Last Admin: 07/18/19 04:49 Dose: 2 mg Morphine Sulfate (Morphine) 1 mg IVPUSH Q1H PRN PRN Reason: Abdominal Pain Last Admin: 07/18/19 10:26 Dose: 1 mg - Exam Wound/Incisions: Drainage (from drain site other sites are clean and dry ) General: Alert, Oriented Lungs: Clear to Auscultation, Other (lower hicks are more audible ) Cardiovascular: Regular Rate, Regular Rhythm GI/Abdominal Exam: Abnormal Bowel Sounds (hypoactive ) - Problem List & Annotations (1) Acute appendicitis SNOMED Code(s): 32471198 Code(s): K35.80 - UNSPECIFIED ACUTE APPENDICITIS Status: Acute Current Visit: Yes Annotation/Comment:: ruputured retrocecal Qualifiers: Acute appendicitis type: with localized peritonitis Appendicitis gangrene presence: with gangrene Appendicitis perforation presence: with perforation Appendicitis abscess presence: with abscess Qualified Code(s): K35.31 - Acute appendicitis with localized peritonitis and gangrene, without perforation; K35.33 - Acute appendicitis with perforation and localized peritonitis, with abscess - Problem List Review Problem List Initiated/Reviewed/Updated: Yes - My Orders Last 24 Hours: Active Orders 24 hr Category Date Time Status Wound Care [RC] QSHIFT Care 07/20/19 09:41 Ordered D5 1/2 NS w/ 20 mEq/L KCl 1,000 ml Med 07/20/19 08:00 Active IV Q8H EKG 12 Lead [EK] Routine Ther 07/19/19 17:00 Ordered Medication Orders Albuterol/Ipratropium (Duoneb 3.0-0.5 Mg/3 Ml) 3 ml NEB Q6H [facility] Last Admin: 07/20/19 03:36 Dose: 3 ml Admin: 07/19/19 21:51 Dose: 3 ml Admin: 07/19/19 16:06 Dose: 3 ml Admin: 07/19/19 10:31 Dose: 3 ml Admin: 07/19/19 03:29 Dose: 3 ml Admin: 07/18/19 21:15 Dose: 3 ml Admin: 07/18/19 17:12 Dose: 3 ml Admin: 07/18/19 10:27 Dose: 3 ml Admin: 07/18/19 03:29 Dose: 3 ml Admin: 07/17/19 21:45 Dose: 3 ml Admin: 07/17/19 15:52 Dose: 3 ml Admin: 07/17/19 10:31 Dose: 3 ml Levofloxacin/Dextrose 750 mg/ (Premix) 150 mls @ 100 mls/hr IV Q24H [facility] Last Admin: 07/19/19 15:24 Dose: 100 mls/hr Infusion: 07/18/19 16:51 Dose: 100 mls/hr Admin: 07/18/19 15:21 Dose: 100 mls/hr Metronidazole 500 mg/ Premix 100 mls @ 100 mls/hr IV Q8H [facility] Last Admin: 07/20/19 08:53 Dose: 100 mls/hr Infusion: 07/20/19 01:45 Dose: 100 mls/hr Admin: 07/20/19 00:45 Dose: 100 mls/hr Infusion: 07/19/19 17:55 Dose: 100 mls/hr Admin: 07/19/19 16:55 Dose: 100 mls/hr Infusion: 07/19/19 10:26 Dose: 100 mls/hr Admin: 07/19/19 09:26 Dose: 100 mls/hr Infusion: 07/19/19 01:28 Dose: 100 mls/hr Admin: 07/19/19 00:28 Dose: 100 mls/hr Infusion: 07/18/19 18:57 Dose: 100 mls/hr Admin: 07/18/19 17:57 Dose: 100 mls/hr Potassium Chloride/Dextrose/Sod Cl (D5 1/2 Ns W/ 20 Meq/L Kcl) 1,000 mls @ 50 mls/hr IV Q8H [facility] Last Admin: 07/20/19 07:41 Dose: 125 mls/hr Ketorolac Tromethamine (Toradol) 30 mg IVPUSH Q6H [facility] Stop: 07/21/19 09:23 Last Admin: 07/20/19 03:43 Dose: 30 mg Admin: 07/19/19 21:47 Dose: 30 mg Admin: 07/19/19 15:23 Dose: 30 mg Admin: 07/19/19 09:45 Dose: 30 mg Admin: 07/19/19 03:29 Dose: 30 mg Admin: 07/18/19 21:13 Dose: 30 mg Admin: 07/18/19 17:12 Dose: 30 mg Admin: 07/18/19 09:21 Dose: 30 mg Admin: 07/18/19 03:29 Dose: 30 mg Admin: 07/17/19 21:46 Dose: 30 mg Admin: 07/17/19 15:50 Dose: 30 mg Admin: 07/17/19 10:18 Dose: 30 mg Admin: 07/17/19 03:30 Dose: 30 mg Admin: 07/16/19 21:45 Dose: 30 mg Admin: 07/16/19 15:56 Dose: 30 mg Admin: 07/16/19 10:14 Dose: 30 mg Morphine Sulfate (Morphine Complex Director 30 Mg In 30 Ml) 0 mg IV ASDIRECTED PRN; Protocol PRN Reason: Pain (severe 7-10) Last Admin: 07/19/19 21:43 Dose: 30 mg Admin: 07/19/19 03:27 Dose: 30 mg Admin: 07/18/19 12:20 Dose: 30 mg Naloxone HCl (Narcan) 0.4 mg IVPUSH Q2M PRN PRN Reason: Respiratory Distress Ondansetron HCl (Zofran) 4 mg IVPUSH Q6H PRN PRN Reason: Nausea/Vomiting Last Admin: 07/17/19 12:14 Dose: 4 mg Admin: 07/16/19 17:42 Dose: 4 mg Pantoprazole Sodium (Protonix Iv) 40 mg IVPUSH Q24H [facility] Last Admin: 07/19/19 10:35 Dose: 40 mg Admin: 07/18/19 10:27 Dose: 40 mg Admin: 07/17/19 10:20 Dose: 40 mg Sodium Chloride (Saline Flush) 10 ml FLUSH ASDIRECTED PRN PRN Reason: Keep Vein Open Last Admin: 07/20/19 00:47 Dose: 10 ml Admin: 07/19/19 21:48 Dose: 10 ml Admin: 07/19/19 17:08 Dose: 10 ml Admin: 07/19/19 00:32 Dose: 10 ml - Assessment Assessment (Free Text/Narrative):: tachycardia is better mobilizing fluids - Plan Plan (Free Text/Narrative):: decrease IVF continue current rx.
[2019-07-20] MEDS: Pantoprazole 40 MG Vial IVPUSH SCH (10:17)
[2019-07-20] MEDS: Levofloxacin/Dextrose 5%-Water 750 MG in Premix Bag 1 BAG IV SCH (15:08)
[2019-07-20] MEDS: Morphine PF 30 MG/30 ML PCA Vial IV PRN (23:59)
[2019-07-21] MEDS: metroNIDAZOLE/Normal Saline 500 MG in Premix Bag 1 BAG IV SCH ×3 (00:07→17:04)
[2019-07-21] MEDS: Sodium Chloride 0.9% 10 ML Syringe FLUSH PRN ×6 (01:19→18:12)
[2019-07-21] MEDS: Ketorolac 30 MG/ML SDV IVPUSH SCH (03:33)
[2019-07-21] MEDS: Albuterol/Ipratropium 3.0-0.5 MG/3 ML Neb Soln NEB SCH ×3 (03:39→16:45)
--- NOTE | 2019-07-21 09:17 | PCM.SURGPN ---
- General Info Date of Service: 07/21/19 POD#: 6 Functional Status: Reports: Pain Controlled, Ambulating, Urinating, Incentive Spirometry - Review of Systems General: Reports: No Symptoms Pulmonary: Reports: No Symptoms Cardiovascular: Reports: No Symptoms Gastrointestinal: Denies: Flatus - Patient Data Vitals - Most Recent: Last Vital Signs Temp 98.3 F 07/21/19 03:58 Pulse 94 07/21/19 03:58 Resp 18 07/21/19 03:58 BP 127/86 07/21/19 03:58 Pulse Ox 96 07/21/19 04:00 Weight - Most Recent: 77.746 kg I&O - Last 24 Hours: Intake & Output 07/20/19 07/21/19 07/21/19 22:59 06:59 14:59 Intake Total 393 513 Output Total 1000 Balance 393 -487 Med Orders - Current: Current Medications Albuterol/Ipratropium (Duoneb 3.0-0.5 Mg/3 Ml) 3 ml NEB Q6H [facility] Last Admin: 07/21/19 03:39 Dose: 3 ml Levofloxacin/Dextrose 750 mg/ (Premix) 150 mls @ 100 mls/hr IV Q24H [facility] Last Admin: 07/20/19 15:08 Dose: 100 mls/hr Metronidazole 500 mg/ Premix 100 mls @ 100 mls/hr IV Q8H [facility] Last Admin: 07/21/19 08:08 Dose: 100 mls/hr Potassium Chloride/Dextrose/Sod Cl (D5 1/2 Ns W/ 20 Meq/L Kcl) 1,000 mls @ 50 mls/hr IV Q8H [facility] Last Admin: 07/20/19 22:10 Dose: 50 mls/hr Ketorolac Tromethamine (Toradol) 30 mg IVPUSH Q6H [facility] Stop: 07/21/19 09:23 Last Admin: 07/21/19 03:33 Dose: 30 mg Morphine Sulfate (Morphine Is Analyst 30 Mg In 30 Ml) 0 mg IV ASDIRECTED PRN; Protocol PRN Reason: Pain (severe 7-10) Last Admin: 07/20/19 23:59 Dose: 30 mg Naloxone HCl (Narcan) 0.4 mg IVPUSH Q2M PRN PRN Reason: Respiratory Distress Ondansetron HCl (Zofran) 4 mg IVPUSH Q6H PRN PRN Reason: Nausea/Vomiting Last Admin: 07/17/19 12:14 Dose: 4 mg Pantoprazole Sodium (Protonix Iv) 40 mg IVPUSH Q24H [facility] Last Admin: 07/20/19 10:17 Dose: 40 mg Sodium Chloride (Saline Flush) 10 ml FLUSH ASDIRECTED PRN PRN Reason: Keep Vein Open Last Admin: 07/21/19 09:11 Dose: 10 ml Discontinued Medications Bisacodyl (Dulcolax) 10 mg RECTAL ONETIME ONE Stop: 07/18/19 18:34 Last Admin: 07/18/19 19:33 Dose: 10 mg Bupivacaine HCl (Marcaine 0.5%) 10 ml INJECT .STK-MED ONE Stop: 07/15/19 17:33 Last Admin: 07/15/19 17:32 Dose: 10 ml Diatrizoate Meglum/Diatrizoate Sod (Gastrografin 37%) 30 ml PO . DIRECTED ONE Stop: 07/15/19 12:52 Last Admin: 07/15/19 13:34 Dose: 30 ml Hydromorphone HCl (Dilaudid) 2 mg IVPUSH Q1H PRN PRN Reason: Pain (severe 7-10) Last Admin: 07/17/19 04:48 Dose: 2 mg Lactated Ringer's (Ringers, Lactated) 1,000 mls @ 150 mls/hr IV ASDIRECTED [facility] Last Admin: 07/17/19 07:38 Dose: 150 mls/hr Ertapenem 1 gm/ Sodium (Chloride) 50 mls @ 100 mls/hr IV ONETIME ONE Stop: 07/15/19 15:29 Last Admin: 07/15/19 16:00 Dose: 100 mls/hr Ertapenem 1 gm/ Sodium (Chloride) 50 mls @ 100 mls/hr IV Q24H [facility] Last Admin: 07/17/19 15:53 Dose: 100 mls/hr Acetaminophen 1,000 mg/ Premix 100 mls @ 400 mls/hr IV Q6H [facility] Stop: 07/16/19 20:01 Last Admin: 07/15/19 22:34 Dose: Not Given Acetaminophen 1,000 mg/ Premix 100 mls @ 400 mls/hr IV Q6H [facility] Stop: 07/17/19 00:01 Last Admin: 07/16/19 06:05 Dose: 400 mls/hr Lactated Ringer's (Ringers, Lactated) 1,000 mls @ 999 mls/hr IV BOLUS ONE Stop: 07/16/19 10:35 Last Admin: 07/16/19 09:57 Dose: 999 mls/hr Lactated Ringer's (Ringers, Lactated) 1,000 mls @ 999 mls/hr IV BOLUS ONE Stop: 07/17/19 07:17 Last Admin: 07/17/19 06:32 Dose: 999 mls/hr Potassium Chloride/Dextrose/Sod Cl (D5 1/2 Ns W/ 20 Meq/L Kcl) 1,000 mls @ 150 mls/hr IV ASDIRECTED [facility] Last Admin: 07/18/19 05:12 Dose: 150 mls/hr Albumin Human (Flexbumin 5%) 250 mls @ 500 mls/hr IV ONETIME ONE Stop: 07/17/19 18:11 Last Admin: 07/17/19 18:40 Dose: 500 mls/hr Potassium Chloride/Dextrose/Sod Cl (D5 1/2 Ns W/ 20 Meq/L Kcl) 1,000 mls @ 125 mls/hr IV Q7H [facility] Last Admin: 07/20/19 10:57 Dose: Not Given Iopamidol (Isovue-370 (76%)) 100 ml IV . DIRECTED ONE Stop: 07/15/19 12:52 Last Admin: 07/15/19 13:34 Dose: 87 ml Lidocaine HCl (Glydo) 6 ml .XX STAT ONE Stop: 07/16/19 03:47 Last Admin: 07/16/19 04:00 Dose: 6 ml Lidocaine HCl (Glydo) 6 ml MM ONETIME ONE Stop: 07/16/19 11:38 Last Admin: 07/16/19 12:08 Dose: 6 ml Lidocaine HCl (Glydo) 6 ml .XX ONETIME ONE Stop: 07/17/19 11:10 Last Admin: 07/17/19 11:50 Dose: 6 ml Lidocaine/Epinephrine (Xylocaine 1% With Epinephrine 1:100,000) 10 ml INJECT .STK-MED ONE Stop: 07/15/19 17:33 Last Admin: 07/15/19 17:32 Dose: 10 ml Morphine Sulfate (Morphine) 1 mg IVPUSH Q1H PRN PRN Reason: Pain Morphine Sulfate (Morphine) 2 mg IVPUSH Q2H PRN PRN Reason: Pain Last Admin: 07/18/19 04:49 Dose: 2 mg Morphine Sulfate (Morphine) 1 mg IVPUSH Q1H PRN PRN Reason: Abdominal Pain Last Admin: 07/18/19 10:26 Dose: 1 mg - Exam Wound/Incisions: Dressing Dry and Intact General: Alert, Oriented Lungs: Clear to Auscultation, Normal Respiratory Effort. No: Decreased Breath Sounds Cardiovascular: Regular Rate, Regular Rhythm GI/Abdominal Exam: Normal Bowel Sounds, Soft, Tender (incisional tenderness) Skin: Warm, Dry - Problem List & Annotations (1) Acute appendicitis SNOMED Code(s): 59635684 Code(s): K35.80 - UNSPECIFIED ACUTE APPENDICITIS Status: Acute Current Visit: Yes Annotation/Comment:: ruputured retrocecal Qualifiers: Acute appendicitis type: with localized peritonitis Appendicitis gangrene presence: with gangrene Appendicitis perforation presence: with perforation Appendicitis abscess presence: with abscess Qualified Code(s): K35.31 - Acute appendicitis with localized peritonitis and gangrene, without perforation; K35.33 - Acute appendicitis with perforation and localized peritonitis, with abscess - Problem List Review Problem List Initiated/Reviewed/Updated: Yes - My Orders Last 24 Hours: Active Orders 24 hr Category Date Time Status Wound Care [RC] QSHIFT Care 07/20/19 09:41 Active OT Evaluation and Treatment [CONS] Routine Cons 07/20/19 11:28 Active Medication Orders Albuterol/Ipratropium (Duoneb 3.0-0.5 Mg/3 Ml) 3 ml NEB Q6H [facility] Last Admin: 07/21/19 03:39 Dose: 3 ml Admin: 07/20/19 22:03 Dose: 3 ml Admin: 07/20/19 16:10 Dose: 3 ml Admin: 07/20/19 10:17 Dose: 3 ml Admin: 07/20/19 03:36 Dose: 3 ml Admin: 07/19/19 21:51 Dose: 3 ml Admin: 07/19/19 16:06 Dose: 3 ml Admin: 07/19/19 10:31 Dose: 3 ml Admin: 07/19/19 03:29 Dose: 3 ml Admin: 07/18/19 21:15 Dose: 3 ml Admin: 07/18/19 17:12 Dose: 3 ml Admin: 07/18/19 10:27 Dose: 3 ml Admin: 07/18/19 03:29 Dose: 3 ml Admin: 07/17/19 21:45 Dose: 3 ml Admin: 07/17/19 15:52 Dose: 3 ml Admin: 07/17/19 10:31 Dose: 3 ml Levofloxacin/Dextrose 750 mg/ (Premix) 150 mls @ 100 mls/hr IV Q24H [facility] Last Admin: 07/20/19 15:08 Dose: 100 mls/hr Infusion: 07/19/19 16:54 Dose: 100 mls/hr Admin: 07/19/19 15:24 Dose: 100 mls/hr Infusion: 07/18/19 16:51 Dose: 100 mls/hr Admin: 07/18/19 15:21 Dose: 100 mls/hr Metronidazole 500 mg/ Premix 100 mls @ 100 mls/hr IV Q8H [facility] Last Admin: 07/21/19 08:08 Dose: 100 mls/hr Infusion: 07/21/19 01:07 Dose: 100 mls/hr Admin: 07/21/19 00:07 Dose: 100 mls/hr Infusion: 07/20/19 17:51 Dose: 100 mls/hr Admin: 07/20/19 16:51 Dose: 100 mls/hr Infusion: 07/20/19 09:53 Dose: 100 mls/hr Admin: 07/20/19 08:53 Dose: 100 mls/hr Infusion: 07/20/19 01:45 Dose: 100 mls/hr Admin: 07/20/19 00:45 Dose: 100 mls/hr Infusion: 07/19/19 17:55 Dose: 100 mls/hr Admin: 07/19/19 16:55 Dose: 100 mls/hr Infusion: 07/19/19 10:26 Dose: 100 mls/hr Admin: 07/19/19 09:26 Dose: 100 mls/hr Infusion: 07/19/19 01:28 Dose: 100 mls/hr Admin: 07/19/19 00:28 Dose: 100 mls/hr Infusion: 07/18/19 18:57 Dose: 100 mls/hr Admin: 07/18/19 17:57 Dose: 100 mls/hr Potassium Chloride/Dextrose/Sod Cl (D5 1/2 Ns W/ 20 Meq/L Kcl) 1,000 mls @ 50 mls/hr IV Q8H [facility] Last Admin: 07/20/19 22:10 Dose: 50 mls/hr Infusion: 07/20/19 22:10 Dose: 50 mls/hr Infusion: 07/20/19 10:10 Dose: 50 mls/hr Admin: 07/20/19 07:41 Dose: 125 mls/hr Ketorolac Tromethamine (Toradol) 30 mg IVPUSH Q6H [facility] Stop: 07/21/19 09:23 Last Admin: 07/21/19 03:33 Dose: 30 mg Admin: 07/20/19 21:40 Dose: 30 mg Admin: 07/20/19 16:10 Dose: 30 mg Admin: 07/20/19 09:50 Dose: 30 mg Admin: 07/20/19 03:43 Dose: 30 mg Admin: 07/19/19 21:47 Dose: 30 mg Admin: 07/19/19 15:23 Dose: 30 mg Admin: 07/19/19 09:45 Dose: 30 mg Admin: 07/19/19 03:29 Dose: 30 mg Admin: 07/18/19 21:13 Dose: 30 mg Admin: 07/18/19 17:12 Dose: 30 mg Admin: 07/18/19 09:21 Dose: 30 mg Admin: 07/18/19 03:29 Dose: 30 mg Admin: 07/17/19 21:46 Dose: 30 mg Admin: 07/17/19 15:50 Dose: 30 mg Admin: 07/17/19 10:18 Dose: 30 mg Admin: 07/17/19 03:30 Dose: 30 mg Admin: 07/16/19 21:45 Dose: 30 mg Admin: 07/16/19 15:56 Dose: 30 mg Admin: 07/16/19 10:14 Dose: 30 mg Morphine Sulfate (Morphine Is Analyst 30 Mg In 30 Ml) 0 mg IV ASDIRECTED PRN; Protocol PRN Reason: Pain (severe 7-10) Last Admin: 07/20/19 23:59 Dose: 30 mg Admin: 07/19/19 21:43 Dose: 30 mg Admin: 07/19/19 03:27 Dose: 30 mg Admin: 07/18/19 12:20 Dose: 30 mg Naloxone HCl (Narcan) 0.4 mg IVPUSH Q2M PRN PRN Reason: Respiratory Distress Ondansetron HCl (Zofran) 4 mg IVPUSH Q6H PRN PRN Reason: Nausea/Vomiting Last Admin: 07/17/19 12:14 Dose: 4 mg Admin: 07/16/19 17:42 Dose: 4 mg Pantoprazole Sodium (Protonix Iv) 40 mg IVPUSH Q24H [facility] Last Admin: 07/20/19 10:17 Dose: 40 mg Admin: 07/19/19 10:35 Dose: 40 mg Admin: 07/18/19 10:27 Dose: 40 mg Admin: 07/17/19 10:20 Dose: 40 mg Sodium Chloride (Saline Flush) 10 ml FLUSH ASDIRECTED PRN PRN Reason: Keep Vein Open Last Admin: 07/21/19 09:11 Dose: 10 ml Admin: 07/21/19 03:36 Dose: 10 ml Admin: 07/21/19 01:19 Dose: 10 ml Admin: 07/20/19 21:43 Dose: 10 ml Admin: 07/20/19 00:47 Dose: 10 ml Admin: 07/19/19 21:48 Dose: 10 ml Admin: 07/19/19 17:08 Dose: 10 ml Admin: 07/19/19 00:32 Dose: 10 ml - Assessment Assessment (Free Text/Narrative):: clinically improved mobilizing fluids and has better bowel movements - Plan Plan (Free Text/Narrative):: Dulcolax suppository
[2019-07-21] MEDS ORDERED: Bisacodyl 10 MG Supp RECTAL ONE (09:20)
[2019-07-21] MEDS: Pantoprazole 40 MG Vial IVPUSH SCH (10:23)
[2019-07-21] MEDS: Levofloxacin/Dextrose 5%-Water 750 MG in Premix Bag 1 BAG IV SCH (15:17)
--- NOTE | 2019-07-21 15:51 | PCM.SN ---
- Free Text/Narrative Note: no flatus or stool. was on toilet and noted something had fallen out also some blood. exam no prolapsed tissue note. bowel sounds are much better than this am. anticipate that will pass flatus soon. continue current rx for now.
[2019-07-21] MEDS: D5 1/2 NS w/ 20 mEq/L KCl 1,000 ML IV SCH (18:15)
[2019-07-22] MEDS: metroNIDAZOLE/Normal Saline 500 MG in Premix Bag 1 BAG IV SCH ×4 (00:18→23:57)
[2019-07-22] MEDS: Sodium Chloride 0.9% 10 ML Syringe FLUSH PRN ×5 (00:34→17:25)
[2019-07-22] MEDS: Ondansetron 4 MG/2 ML SDV IVPUSH PRN ×2 (07:39→18:09)
--- NOTE | 2019-07-22 08:50 | PCM.SURGPN ---
- General Info Date of Service: 07/22/19 POD#: 7 Functional Status: Reports: Pain Controlled, Urinating, Incentive Spirometry - Review of Systems Pulmonary: Reports: No Symptoms Cardiovascular: Reports: No Symptoms Gastrointestinal: Reports: Flatus - Patient Data Vitals - Most Recent: Last Vital Signs Temp 97.7 F 07/22/19 02:30 Pulse 110 H 07/22/19 04:00 Resp 18 07/22/19 04:00 BP 130/92 H 07/22/19 02:30 Pulse Ox 93 L 07/22/19 04:00 Weight - Most Recent: 77.746 kg I&O - Last 24 Hours: Intake & Output 07/21/19 07/22/19 07/22/19 22:59 06:59 14:59 Intake Total 500 570 Output Total 800 1350 Balance -300 -780 Med Orders - Current: Current Medications Levofloxacin/Dextrose 750 mg/ (Premix) 150 mls @ 100 mls/hr IV Q24H [facility] Last Admin: 07/21/19 15:17 Dose: 100 mls/hr Metronidazole 500 mg/ Premix 100 mls @ 100 mls/hr IV Q8H [facility] Last Admin: 07/22/19 00:18 Dose: 100 mls/hr Potassium Chloride/Dextrose/Sod Cl (D5 1/2 Ns W/ 20 Meq/L Kcl) 1,000 mls @ 50 mls/hr IV Q20H [facility] Last Admin: 07/21/19 18:15 Dose: 50 mls/hr Metoclopramide HCl (Reglan) 10 mg IVPUSH Q6H [facility] Morphine Sulfate (Morphine) 1 mg IVPUSH Q1H PRN PRN Reason: Pain Naloxone HCl (Narcan) 0.4 mg IVPUSH Q2M PRN PRN Reason: Respiratory Distress Ondansetron HCl (Zofran) 4 mg IVPUSH Q6H PRN PRN Reason: Nausea/Vomiting Last Admin: 07/22/19 07:39 Dose: 4 mg Pantoprazole Sodium (Protonix Iv) 40 mg IVPUSH Q24H [facility] Last Admin: 07/21/19 10:23 Dose: 40 mg Sodium Chloride (Saline Flush) 10 ml FLUSH ASDIRECTED PRN PRN Reason: Keep Vein Open Last Admin: 07/22/19 00:34 Dose: 10 ml Discontinued Medications Albuterol/Ipratropium (Duoneb 3.0-0.5 Mg/3 Ml) 3 ml NEB Q6H [facility] Last Admin: 07/21/19 16:45 Dose: Not Given Bisacodyl (Dulcolax) 10 mg RECTAL ONETIME ONE Stop: 07/18/19 18:34 Last Admin: 07/18/19 19:33 Dose: 10 mg Bisacodyl (Dulcolax) 10 mg RECTAL ONETIME ONE Stop: 07/21/19 09:21 Last Admin: 07/21/19 10:15 Dose: 10 mg Bupivacaine HCl (Marcaine 0.5%) 10 ml INJECT .STK-MED ONE Stop: 07/15/19 17:33 Last Admin: 07/15/19 17:32 Dose: 10 ml Diatrizoate Meglum/Diatrizoate Sod (Gastrografin 37%) 30 ml PO . DIRECTED ONE Stop: 07/15/19 12:52 Last Admin: 07/15/19 13:34 Dose: 30 ml Hydromorphone HCl (Dilaudid) 2 mg IVPUSH Q1H PRN PRN Reason: Pain (severe 7-10) Last Admin: 07/17/19 04:48 Dose: 2 mg Lactated Ringer's (Ringers, Lactated) 1,000 mls @ 150 mls/hr IV ASDIRECTED [facility] Last Admin: 07/17/19 07:38 Dose: 150 mls/hr Ertapenem 1 gm/ Sodium (Chloride) 50 mls @ 100 mls/hr IV ONETIME ONE Stop: 07/15/19 15:29 Last Admin: 07/15/19 16:00 Dose: 100 mls/hr Ertapenem 1 gm/ Sodium (Chloride) 50 mls @ 100 mls/hr IV Q24H [facility] Last Admin: 07/17/19 15:53 Dose: 100 mls/hr Acetaminophen 1,000 mg/ Premix 100 mls @ 400 mls/hr IV Q6H [facility] Stop: 07/16/19 20:01 Last Admin: 07/15/19 22:34 Dose: Not Given Acetaminophen 1,000 mg/ Premix 100 mls @ 400 mls/hr IV Q6H [facility] Stop: 07/17/19 00:01 Last Admin: 07/16/19 06:05 Dose: 400 mls/hr Lactated Ringer's (Ringers, Lactated) 1,000 mls @ 999 mls/hr IV BOLUS ONE Stop: 07/16/19 10:35 Last Admin: 07/16/19 09:57 Dose: 999 mls/hr Lactated Ringer's (Ringers, Lactated) 1,000 mls @ 999 mls/hr IV BOLUS ONE Stop: 07/17/19 07:17 Last Admin: 07/17/19 06:32 Dose: 999 mls/hr Potassium Chloride/Dextrose/Sod Cl (D5 1/2 Ns W/ 20 Meq/L Kcl) 1,000 mls @ 150 mls/hr IV ASDIRECTED [facility] Last Admin: 07/18/19 05:12 Dose: 150 mls/hr Albumin Human (Flexbumin 5%) 250 mls @ 500 mls/hr IV ONETIME ONE Stop: 07/17/19 18:11 Last Admin: 07/17/19 18:40 Dose: 500 mls/hr Potassium Chloride/Dextrose/Sod Cl (D5 1/2 Ns W/ 20 Meq/L Kcl) 1,000 mls @ 125 mls/hr IV Q7H [facility] Last Admin: 07/20/19 10:57 Dose: Not Given Potassium Chloride/Dextrose/Sod Cl (D5 1/2 Ns W/ 20 Meq/L Kcl) 1,000 mls @ 50 mls/hr IV Q8H [facility] Stop: 07/21/19 14:59 Last Admin: 07/20/19 22:10 Dose: 50 mls/hr Iopamidol (Isovue-370 (76%)) 100 ml IV . DIRECTED ONE Stop: 07/15/19 12:52 Last Admin: 07/15/19 13:34 Dose: 87 ml Ketorolac Tromethamine (Toradol) 30 mg IVPUSH Q6H [facility] Stop: 07/21/19 09:23 Last Admin: 07/21/19 03:33 Dose: 30 mg Lidocaine HCl (Glydo) 6 ml .XX STAT ONE Stop: 07/16/19 03:47 Last Admin: 07/16/19 04:00 Dose: 6 ml Lidocaine HCl (Glydo) 6 ml MM ONETIME ONE Stop: 07/16/19 11:38 Last Admin: 07/16/19 12:08 Dose: 6 ml Lidocaine HCl (Glydo) 6 ml .XX ONETIME ONE Stop: 07/17/19 11:10 Last Admin: 07/17/19 11:50 Dose: 6 ml Lidocaine/Epinephrine (Xylocaine 1% With Epinephrine 1:100,000) 10 ml INJECT .STK-MED ONE Stop: 07/15/19 17:33 Last Admin: 07/15/19 17:32 Dose: 10 ml Morphine Sulfate (Morphine) 1 mg IVPUSH Q1H PRN PRN Reason: Pain Morphine Sulfate (Morphine) 2 mg IVPUSH Q2H PRN PRN Reason: Pain Last Admin: 07/18/19 04:49 Dose: 2 mg Morphine Sulfate (Morphine) 1 mg IVPUSH Q1H PRN PRN Reason: Abdominal Pain Last Admin: 07/18/19 10:26 Dose: 1 mg Morphine Sulfate (Morphine Recycling Specialist 30 Mg In 30 Ml) 0 mg IV ASDIRECTED PRN; Protocol PRN Reason: Pain (severe 7-10) Last Admin: 07/20/19 23:59 Dose: 30 mg - Exam Wound/Incisions: Healing Well Lungs: Clear to Auscultation, Normal Respiratory Effort Cardiovascular: Regular Rate, Regular Rhythm GI/Abdominal Exam: Normal Bowel Sounds, Soft - Problem List & Annotations (1) Acute appendicitis SNOMED Code(s): 75876229 Code(s): K35.80 - UNSPECIFIED ACUTE APPENDICITIS Status: Acute Current Visit: Yes Annotation/Comment:: ruputured retrocecal Qualifiers: Acute appendicitis type: with localized peritonitis Appendicitis gangrene presence: with gangrene Appendicitis perforation presence: with perforation Appendicitis abscess presence: with abscess Qualified Code(s): K35.31 - Acute appendicitis with localized peritonitis and gangrene, without perforation; K35.33 - Acute appendicitis with perforation and localized peritonitis, with abscess - Problem List Review Problem List Initiated/Reviewed/Updated: Yes - My Orders Last 24 Hours: Active Orders 24 hr Category Date Time Status BASIC METABOLIC PANEL,BMP [CHEM] Routine Lab 07/22/19 08:37 Ordered CBC WITH AUTO DIFF [HEME] Routine Lab 07/22/19 08:37 Ordered D5 1/2 NS w/ 20 mEq/L KCl 1,000 ml Med 07/21/19 15:00 Active IV Q20H Metoclopramide [Reglan] Med 07/22/19 08:45 Active 10 mg IVPUSH Q6H Morphine Med 07/22/19 08:36 Active 1 mg IVPUSH Q1H PRN Medication Orders Levofloxacin/Dextrose 750 mg/ (Premix) 150 mls @ 100 mls/hr IV Q24H [facility] Last Admin: 07/21/19 15:17 Dose: 100 mls/hr Infusion: 07/20/19 16:38 Dose: 100 mls/hr Admin: 07/20/19 15:08 Dose: 100 mls/hr Infusion: 07/19/19 16:54 Dose: 100 mls/hr Admin: 07/19/19 15:24 Dose: 100 mls/hr Infusion: 07/18/19 16:51 Dose: 100 mls/hr Admin: 07/18/19 15:21 Dose: 100 mls/hr Metronidazole 500 mg/ Premix 100 mls @ 100 mls/hr IV Q8H [facility] Last Admin: 07/22/19 00:18 Dose: 100 mls/hr Infusion: 07/21/19 18:04 Dose: 100 mls/hr Admin: 07/21/19 17:04 Dose: 100 mls/hr Infusion: 07/21/19 09:08 Dose: 100 mls/hr Admin: 07/21/19 08:08 Dose: 100 mls/hr Infusion: 07/21/19 01:07 Dose: 100 mls/hr Admin: 07/21/19 00:07 Dose: 100 mls/hr Infusion: 07/20/19 17:51 Dose: 100 mls/hr Admin: 07/20/19 16:51 Dose: 100 mls/hr Infusion: 07/20/19 09:53 Dose: 100 mls/hr Admin: 07/20/19 08:53 Dose: 100 mls/hr Infusion: 07/20/19 01:45 Dose: 100 mls/hr Admin: 07/20/19 00:45 Dose: 100 mls/hr Infusion: 07/19/19 17:55 Dose: 100 mls/hr Admin: 07/19/19 16:55 Dose: 100 mls/hr Infusion: 07/19/19 10:26 Dose: 100 mls/hr Admin: 07/19/19 09:26 Dose: 100 mls/hr Infusion: 07/19/19 01:28 Dose: 100 mls/hr Admin: 07/19/19 00:28 Dose: 100 mls/hr Infusion: 07/18/19 18:57 Dose: 100 mls/hr Admin: 07/18/19 17:57 Dose: 100 mls/hr Potassium Chloride/Dextrose/Sod Cl (D5 1/2 Ns W/ 20 Meq/L Kcl) 1,000 mls @ 50 mls/hr IV Q20H [facility] Last Admin: 07/21/19 18:15 Dose: 50 mls/hr Metoclopramide HCl (Reglan) 10 mg IVPUSH Q6H [facility] Morphine Sulfate (Morphine) 1 mg IVPUSH Q1H PRN PRN Reason: Pain Naloxone HCl (Narcan) 0.4 mg IVPUSH Q2M PRN PRN Reason: Respiratory Distress Ondansetron HCl (Zofran) 4 mg IVPUSH Q6H PRN PRN Reason: Nausea/Vomiting Last Admin: 07/22/19 07:39 Dose: 4 mg Admin: 07/17/19 12:14 Dose: 4 mg Admin: 07/16/19 17:42 Dose: 4 mg Pantoprazole Sodium (Protonix Iv) 40 mg IVPUSH Q24H [facility] Last Admin: 07/21/19 10:23 Dose: 40 mg Admin: 07/20/19 10:17 Dose: 40 mg Admin: 07/19/19 10:35 Dose: 40 mg Admin: 07/18/19 10:27 Dose: 40 mg Admin: 07/17/19 10:20 Dose: 40 mg Sodium Chloride (Saline Flush) 10 ml FLUSH ASDIRECTED PRN PRN Reason: Keep Vein Open Last Admin: 07/22/19 00:34 Dose: 10 ml Admin: 07/21/19 18:12 Dose: 10 ml Admin: 07/21/19 17:00 Dose: 10 ml Admin: 07/21/19 10:33 Dose: 10 ml Admin: 07/21/19 09:11 Dose: 10 ml Admin: 07/21/19 03:36 Dose: 10 ml Admin: 07/21/19 01:19 Dose: 10 ml Admin: 07/20/19 21:43 Dose: 10 ml Admin: 07/20/19 00:47 Dose: 10 ml Admin: 07/19/19 21:48 Dose: 10 ml Admin: 07/19/19 17:08 Dose: 10 ml Admin: 07/19/19 00:32 Dose: 10 ml - Assessment Assessment (Free Text/Narrative):: return of bowel function - Plan Plan (Free Text/Narrative):: clear liquid diet reglan
[2019-07-22] MEDS: Metoclopramide 10 MG/2 ML SDV IVPUSH SCH ×4 (09:41→19:55)
[2019-07-22] MEDS: Pantoprazole 40 MG Vial IVPUSH SCH (09:45)
[2019-07-22] MEDS: Levofloxacin/Dextrose 5%-Water 750 MG in Premix Bag 1 BAG IV SCH (14:36)
[2019-07-22] MEDS: Morphine 2 MG/ML Syringe IVPUSH PRN ×2 (14:58→20:29)
[2019-07-22] MEDS: D5 1/2 NS w/ 20 mEq/L KCl 1,000 ML IV SCH (15:02)
[2019-07-23] MEDS: Sodium Chloride 0.9% 10 ML Syringe FLUSH PRN ×2 (01:09→09:57)
[2019-07-23] MEDS: D5 1/2 NS w/ 20 mEq/L KCl 1,000 ML IV SCH ×3 (02:12→10:29)
[2019-07-23] MEDS: Metoclopramide 10 MG/2 ML SDV IVPUSH SCH ×4 (02:16→20:32)
--- NOTE | 2019-07-23 09:19 | PCM.SURGPN ---
- General Info Date of Service: 07/23/19 POD#: 8 - Review of Systems General: Reports: Other (reports feeling slightly better. ) Pulmonary: Reports: No Symptoms Cardiovascular: Reports: No Symptoms Gastrointestinal: Reports: Flatus, Other (bowel movements ) - Patient Data Vitals - Most Recent: Last Vital Signs Temp 98.2 F 07/23/19 04:00 Pulse 99 07/23/19 04:00 Resp 20 07/23/19 04:00 BP 128/72 07/23/19 04:00 Pulse Ox 95 07/23/19 04:00 Weight - Most Recent: 77.746 kg I&O - Last 24 Hours: Intake & Output 07/22/19 07/23/19 07/23/19 22:59 06:59 14:59 Intake Total 1196 1021 Output Total 900 1300 Balance 296 -279 Lab Results Last 24 Hrs: Laboratory Results - last 24 hr 07/22/19 07/22/19 Range/Units 09:10 09:10 WBC 14.0 H (4.5-12.0) X10-3/uL RBC 4.29 L (4.30-5.75) x10(6)uL Hgb 11.6 L (13.5-17.8) g/dL Hct 34.8 (30.0-51.3) % MCV 81.1 (80-96) fL MCH 27.1 L (27.7-33.6) pg MCHC 33.4 (32.2-35.4) g/dL RDW 12.2 (11.5-15.5) % Plt Count 467 H (125-369) X10(3)uL MPV 7.7 (7.4-10.4) fL Add Manual Diff Yes Neutrophils % (Manual) 90 H (46-82) % Lymphocytes % (Manual) 7 L (13-37) % Monocytes % (Manual) 3 L (4-12) % Sodium 140 (135-145) mmol/L Potassium 4.4 (3.5-5.3) mmol/L Chloride 103 (100-110) mmol/L Carbon Dioxide 27 (21-32) mmol/L BUN 8 (7-18) mg/dL Creatinine 1.1 (0.70-1.30) mg/dL Est Cr Clr Drug Dosing 101.77 mL/min Estimated GFR (MDRD) > 60 (>60) BUN/Creatinine Ratio 7.3 L (9-20) Glucose 97 (80-116) mg/dL Calcium 8.7 (8.6-10.2) mg/dL Med Orders - Current: Current Medications Levofloxacin/Dextrose 750 mg/ (Premix) 150 mls @ 100 mls/hr IV Q24H [facility] Last Admin: 07/22/19 14:36 Dose: 100 mls/hr Metronidazole 500 mg/ Premix 100 mls @ 100 mls/hr IV Q8H [facility] Last Admin: 07/22/19 23:57 Dose: 100 mls/hr Potassium Chloride/Dextrose/Sod Cl (D5 1/2 Ns W/ 20 Meq/L Kcl) 1,000 mls @ 125 mls/hr IV ASDIRECTED [facility] Last Admin: 07/23/19 02:12 Dose: 125 mls/hr Metoclopramide HCl (Reglan) 10 mg IVPUSH Q6H [facility] Last Admin: 07/23/19 02:16 Dose: 10 mg Morphine Sulfate (Morphine) 1 mg IVPUSH Q1H PRN PRN Reason: Pain Last Admin: 07/22/19 20:29 Dose: 1 mg Naloxone HCl (Narcan) 0.4 mg IVPUSH Q2M PRN PRN Reason: Respiratory Distress Ondansetron HCl (Zofran) 4 mg IVPUSH Q6H PRN PRN Reason: Nausea/Vomiting Last Admin: 07/22/19 18:09 Dose: 4 mg Pantoprazole Sodium (Protonix Iv) 40 mg IVPUSH Q24H [facility] Last Admin: 07/22/19 09:45 Dose: 40 mg Sodium Chloride (Saline Flush) 10 ml FLUSH ASDIRECTED PRN PRN Reason: Keep Vein Open Last Admin: 07/23/19 01:09 Dose: 10 ml Discontinued Medications Albuterol/Ipratropium (Duoneb 3.0-0.5 Mg/3 Ml) 3 ml NEB Q6H [facility] Last Admin: 07/21/19 16:45 Dose: Not Given Bisacodyl (Dulcolax) 10 mg RECTAL ONETIME ONE Stop: 07/18/19 18:34 Last Admin: 07/18/19 19:33 Dose: 10 mg Bisacodyl (Dulcolax) 10 mg RECTAL ONETIME ONE Stop: 07/21/19 09:21 Last Admin: 07/21/19 10:15 Dose: 10 mg Bupivacaine HCl (Marcaine 0.5%) 10 ml INJECT .STK-MED ONE Stop: 07/15/19 17:33 Last Admin: 07/15/19 17:32 Dose: 10 ml Diatrizoate Meglum/Diatrizoate Sod (Gastrografin 37%) 30 ml PO . DIRECTED ONE Stop: 07/15/19 12:52 Last Admin: 07/15/19 13:34 Dose: 30 ml Hydromorphone HCl (Dilaudid) 2 mg IVPUSH Q1H PRN PRN Reason: Pain (severe 7-10) Last Admin: 07/17/19 04:48 Dose: 2 mg Lactated Ringer's (Ringers, Lactated) 1,000 mls @ 150 mls/hr IV ASDIRECTED [facility] Last Admin: 07/17/19 07:38 Dose: 150 mls/hr Ertapenem 1 gm/ Sodium (Chloride) 50 mls @ 100 mls/hr IV ONETIME ONE Stop: 07/15/19 15:29 Last Admin: 07/15/19 16:00 Dose: 100 mls/hr Ertapenem 1 gm/ Sodium (Chloride) 50 mls @ 100 mls/hr IV Q24H [facility] Last Admin: 07/17/19 15:53 Dose: 100 mls/hr Acetaminophen 1,000 mg/ Premix 100 mls @ 400 mls/hr IV Q6H [facility] Stop: 07/16/19 20:01 Last Admin: 07/15/19 22:34 Dose: Not Given Acetaminophen 1,000 mg/ Premix 100 mls @ 400 mls/hr IV Q6H [facility] Stop: 07/17/19 00:01 Last Admin: 07/16/19 06:05 Dose: 400 mls/hr Lactated Ringer's (Ringers, Lactated) 1,000 mls @ 999 mls/hr IV BOLUS ONE Stop: 07/16/19 10:35 Last Admin: 07/16/19 09:57 Dose: 999 mls/hr Lactated Ringer's (Ringers, Lactated) 1,000 mls @ 999 mls/hr IV BOLUS ONE Stop: 07/17/19 07:17 Last Admin: 07/17/19 06:32 Dose: 999 mls/hr Potassium Chloride/Dextrose/Sod Cl (D5 1/2 Ns W/ 20 Meq/L Kcl) 1,000 mls @ 150 mls/hr IV ASDIRECTED [facility] Last Admin: 07/18/19 05:12 Dose: 150 mls/hr Albumin Human (Flexbumin 5%) 250 mls @ 500 mls/hr IV ONETIME ONE Stop: 07/17/19 18:11 Last Admin: 07/17/19 18:40 Dose: 500 mls/hr Potassium Chloride/Dextrose/Sod Cl (D5 1/2 Ns W/ 20 Meq/L Kcl) 1,000 mls @ 125 mls/hr IV Q7H [facility] Last Admin: 07/20/19 10:57 Dose: Not Given Potassium Chloride/Dextrose/Sod Cl (D5 1/2 Ns W/ 20 Meq/L Kcl) 1,000 mls @ 50 mls/hr IV Q8H [facility] Stop: 07/21/19 14:59 Last Admin: 07/20/19 22:10 Dose: 50 mls/hr Potassium Chloride/Dextrose/Sod Cl (D5 1/2 Ns W/ 20 Meq/L Kcl) 1,000 mls @ 50 mls/hr IV Q20H [facility] Last Admin: 07/22/19 15:02 Dose: 50 mls/hr Iopamidol (Isovue-370 (76%)) 100 ml IV . DIRECTED ONE Stop: 07/15/19 12:52 Last Admin: 07/15/19 13:34 Dose: 87 ml Ketorolac Tromethamine (Toradol) 30 mg IVPUSH Q6H [facility] Stop: 07/21/19 09:23 Last Admin: 07/21/19 03:33 Dose: 30 mg Lidocaine HCl (Glydo) 6 ml .XX STAT ONE Stop: 07/16/19 03:47 Last Admin: 07/16/19 04:00 Dose: 6 ml Lidocaine HCl (Glydo) 6 ml MM ONETIME ONE Stop: 07/16/19 11:38 Last Admin: 07/16/19 12:08 Dose: 6 ml Lidocaine HCl (Glydo) 6 ml .XX ONETIME ONE Stop: 07/17/19 11:10 Last Admin: 07/17/19 11:50 Dose: 6 ml Lidocaine/Epinephrine (Xylocaine 1% With Epinephrine 1:100,000) 10 ml INJECT .STK-MED ONE Stop: 07/15/19 17:33 Last Admin: 07/15/19 17:32 Dose: 10 ml Morphine Sulfate (Morphine) 1 mg IVPUSH Q1H PRN PRN Reason: Pain Morphine Sulfate (Morphine) 2 mg IVPUSH Q2H PRN PRN Reason: Pain Last Admin: 07/18/19 04:49 Dose: 2 mg Morphine Sulfate (Morphine) 1 mg IVPUSH Q1H PRN PRN Reason: Abdominal Pain Last Admin: 07/18/19 10:26 Dose: 1 mg Morphine Sulfate (Morphine Military Professional 30 Mg In 30 Ml) 0 mg IV ASDIRECTED PRN; Protocol PRN Reason: Pain (severe 7-10) Last Admin: 07/20/19 23:59 Dose: 30 mg - Exam Wound/Incisions: Dressing Dry and Intact General: Alert, Oriented, Cooperative, No Acute Distress Lungs: Clear to Auscultation, Decreased Breath Sounds (lower lung bases ) Cardiovascular: Regular Rate, Regular Rhythm GI/Abdominal Exam: Soft, Non-Tender, No Distention, Abnormal Bowel Sounds ( slightly hypoactive ) - Problem List & Annotations (1) Acute appendicitis SNOMED Code(s): 80440506 Code(s): K35.80 - UNSPECIFIED ACUTE APPENDICITIS Status: Acute Current Visit: Yes Annotation/Comment:: ruputured retrocecal Qualifiers: Acute appendicitis type: with localized peritonitis Appendicitis gangrene presence: with gangrene Appendicitis perforation presence: with perforation Appendicitis abscess presence: with abscess Qualified Code(s): K35.31 - Acute appendicitis with localized peritonitis and gangrene, without perforation; K35.33 - Acute appendicitis with perforation and localized peritonitis, with abscess - Problem List Review Problem List Initiated/Reviewed/Updated: Yes - My Orders Last 24 Hours: Active Orders 24 hr Category Date Time Status Clear Liquid Diet [DIET] Diet 07/22/19 Lunch Active Clear Liquid Diet [DIET] Diet 07/23/19 Lunch Ordered D5 1/2 NS w/ 20 mEq/L KCl 1,000 ml Med 07/22/19 18:30 Active IV ASDIRECTED Metoclopramide [Reglan] Med 07/22/19 08:45 Active 10 mg IVPUSH Q6H Morphine Med 07/22/19 08:36 Active 1 mg IVPUSH Q1H PRN Medication Orders Levofloxacin/Dextrose 750 mg/ (Premix) 150 mls @ 100 mls/hr IV Q24H [facility] Last Admin: 07/22/19 14:36 Dose: 100 mls/hr Infusion: 07/21/19 16:47 Dose: 100 mls/hr Admin: 07/21/19 15:17 Dose: 100 mls/hr Infusion: 07/20/19 16:38 Dose: 100 mls/hr Admin: 07/20/19 15:08 Dose: 100 mls/hr Infusion: 07/19/19 16:54 Dose: 100 mls/hr Admin: 07/19/19 15:24 Dose: 100 mls/hr Infusion: 07/18/19 16:51 Dose: 100 mls/hr Admin: 07/18/19 15:21 Dose: 100 mls/hr Metronidazole 500 mg/ Premix 100 mls @ 100 mls/hr IV Q8H [facility] Last Admin: 07/22/19 23:57 Dose: 100 mls/hr Infusion: 07/22/19 18:22 Dose: 100 mls/hr Admin: 07/22/19 17:22 Dose: 100 mls/hr Infusion: 07/22/19 10:37 Dose: 100 mls/hr Admin: 07/22/19 09:37 Dose: 100 mls/hr Infusion: 07/22/19 01:18 Dose: 100 mls/hr Admin: 07/22/19 00:18 Dose: 100 mls/hr Infusion: 07/21/19 18:04 Dose: 100 mls/hr Admin: 07/21/19 17:04 Dose: 100 mls/hr Infusion: 07/21/19 09:08 Dose: 100 mls/hr Admin: 07/21/19 08:08 Dose: 100 mls/hr Infusion: 07/21/19 01:07 Dose: 100 mls/hr Admin: 07/21/19 00:07 Dose: 100 mls/hr Infusion: 07/20/19 17:51 Dose: 100 mls/hr Admin: 07/20/19 16:51 Dose: 100 mls/hr Infusion: 07/20/19 09:53 Dose: 100 mls/hr Admin: 07/20/19 08:53 Dose: 100 mls/hr Infusion: 07/20/19 01:45 Dose: 100 mls/hr Admin: 07/20/19 00:45 Dose: 100 mls/hr Infusion: 07/19/19 17:55 Dose: 100 mls/hr Admin: 07/19/19 16:55 Dose: 100 mls/hr Infusion: 07/19/19 10:26 Dose: 100 mls/hr Admin: 07/19/19 09:26 Dose: 100 mls/hr Infusion: 07/19/19 01:28 Dose: 100 mls/hr Admin: 07/19/19 00:28 Dose: 100 mls/hr Infusion: 07/18/19 18:57 Dose: 100 mls/hr Admin: 07/18/19 17:57 Dose: 100 mls/hr Potassium Chloride/Dextrose/Sod Cl (D5 1/2 Ns W/ 20 Meq/L Kcl) 1,000 mls @ 125 mls/hr IV ASDIRECTED [facility] Last Admin: 07/23/19 02:12 Dose: 125 mls/hr Metoclopramide HCl (Reglan) 10 mg IVPUSH Q6H [facility] Last Admin: 07/23/19 02:16 Dose: 10 mg Admin: 07/22/19 19:55 Dose: 10 mg Admin: 07/22/19 14:34 Dose: 10 mg Admin: 07/22/19 09:41 Dose: 10 mg Morphine Sulfate (Morphine) 1 mg IVPUSH Q1H PRN PRN Reason: Pain Last Admin: 07/22/19 20:29 Dose: 1 mg Admin: 07/22/19 14:58 Dose: 1 mg Naloxone HCl (Narcan) 0.4 mg IVPUSH Q2M PRN PRN Reason: Respiratory Distress Ondansetron HCl (Zofran) 4 mg IVPUSH Q6H PRN PRN Reason: Nausea/Vomiting Last Admin: 07/22/19 18:09 Dose: 4 mg Admin: 07/22/19 07:39 Dose: 4 mg Admin: 07/17/19 12:14 Dose: 4 mg Admin: 07/16/19 17:42 Dose: 4 mg Pantoprazole Sodium (Protonix Iv) 40 mg IVPUSH Q24H [facility] Last Admin: 07/22/19 09:45 Dose: 40 mg Admin: 07/21/19 10:23 Dose: 40 mg Admin: 07/20/19 10:17 Dose: 40 mg Admin: 07/19/19 10:35 Dose: 40 mg Admin: 07/18/19 10:27 Dose: 40 mg Admin: 07/17/19 10:20 Dose: 40 mg Sodium Chloride (Saline Flush) 10 ml FLUSH ASDIRECTED PRN PRN Reason: Keep Vein Open Last Admin: 07/23/19 01:09 Dose: 10 ml Admin: 07/22/19 17:25 Dose: 10 ml Admin: 07/22/19 14:57 Dose: 10 ml Admin: 07/22/19 14:34 Dose: 10 ml Admin: 07/22/19 09:40 Dose: 10 ml Admin: 07/22/19 00:34 Dose: 10 ml Admin: 07/21/19 18:12 Dose: 10 ml Admin: 07/21/19 17:00 Dose: 10 ml Admin: 07/21/19 10:33 Dose: 10 ml Admin: 07/21/19 09:11 Dose: 10 ml Admin: 07/21/19 03:36 Dose: 10 ml Admin: 07/21/19 01:19 Dose: 10 ml Admin: 07/20/19 21:43 Dose: 10 ml Admin: 07/20/19 00:47 Dose: 10 ml Admin: 07/19/19 21:48 Dose: 10 ml Admin: 07/19/19 17:08 Dose: 10 ml Admin: 07/19/19 00:32 Dose: 10 ml - Assessment Assessment (Free Text/Narrative):: no further emesis or gi upset since last pm - Plan Plan (Free Text/Narrative):: will continue clears.
[2019-07-23] MEDS: Pantoprazole 40 MG Vial IVPUSH SCH (09:49)
[2019-07-23] MEDS: metroNIDAZOLE/Normal Saline 500 MG in Premix Bag 1 BAG IV SCH ×2 (09:53→17:22)
[2019-07-23] MEDS: Levofloxacin/Dextrose 5%-Water 750 MG in Premix Bag 1 BAG IV SCH (14:15)
[2019-07-24] MEDS: metroNIDAZOLE/Normal Saline 500 MG in Premix Bag 1 BAG IV SCH ×2 (00:12→20:35)
[2019-07-24] MEDS: Sodium Chloride 0.9% 10 ML Syringe FLUSH PRN ×2 (01:31→09:27)
[2019-07-24] MEDS: Metoclopramide 10 MG/2 ML SDV IVPUSH SCH ×2 (02:34→20:35)
[2019-07-24] MEDS: D5 1/2 NS w/ 20 mEq/L KCl 1,000 ML IV SCH (02:34)
[2019-07-24] MEDS ORDERED: Acetaminophen/HYDROcodone 325-5 MG Tab PO PRN (08:57)
[2019-07-24] MEDS ORDERED: Celecoxib 200 MG Cap PO SCH (09:00)
--- NOTE | 2019-07-24 09:00 | PCM.SURGPN ---
- General Info Date of Service: 07/24/19 POD#: 9 - Review of Systems General: Reports: No Symptoms, Appetite. Denies: Fever Pulmonary: Reports: No Symptoms Cardiovascular: Reports: No Symptoms Gastrointestinal: Reports: No Symptoms, Flatus, Other (bowel movements ) - Patient Data Vitals - Most Recent: Last Vital Signs Temp 98.1 F 07/24/19 04:00 Pulse 91 07/24/19 04:00 Resp 18 07/24/19 00:00 BP 130/68 07/24/19 04:00 Pulse Ox 96 07/24/19 00:00 Weight - Most Recent: 77.746 kg Med Orders - Current: Current Medications Hydrocodone Bitart/Acetaminophen ([place] 325-5 Mg) 1 tab PO Q4H PRN PRN Reason: Pain Celecoxib (Celebrex) 200 mg PO BID [facility] Levofloxacin (Levaquin) 750 mg PO Q24H [facility] Metronidazole (Flagyl) 500 mg PO Q8H [facility] Naloxone HCl (Narcan) 0.4 mg IVPUSH Q2M PRN PRN Reason: Respiratory Distress Ondansetron HCl (Zofran) 4 mg IVPUSH Q6H PRN PRN Reason: Nausea/Vomiting Last Admin: 07/22/19 18:09 Dose: 4 mg Sodium Chloride (Saline Flush) 10 ml FLUSH ASDIRECTED PRN PRN Reason: Keep Vein Open Last Admin: 07/24/19 01:31 Dose: 10 ml Discontinued Medications Albuterol/Ipratropium (Duoneb 3.0-0.5 Mg/3 Ml) 3 ml NEB Q6H CLAUDIA Last Admin: 07/21/19 16:45 Dose: Not Given Bisacodyl (Dulcolax) 10 mg RECTAL ONETIME ONE Stop: 07/18/19 18:34 Last Admin: 07/18/19 19:33 Dose: 10 mg Bisacodyl (Dulcolax) 10 mg RECTAL ONETIME ONE Stop: 07/21/19 09:21 Last Admin: 07/21/19 10:15 Dose: 10 mg Bupivacaine HCl (Marcaine 0.5%) 10 ml INJECT .STK-MED ONE Stop: 07/15/19 17:33 Last Admin: 07/15/19 17:32 Dose: 10 ml Diatrizoate Meglum/Diatrizoate Sod (Gastrografin 37%) 30 ml PO . DIRECTED ONE Stop: 07/15/19 12:52 Last Admin: 07/15/19 13:34 Dose: 30 ml Hydromorphone HCl (Dilaudid) 2 mg IVPUSH Q1H PRN PRN Reason: Pain (severe 7-10) Last Admin: 07/17/19 04:48 Dose: 2 mg Lactated Ringer's (Ringers, Lactated) 1,000 mls @ 150 mls/hr IV ASDIRECTED [facility] Last Admin: 07/17/19 07:38 Dose: 150 mls/hr Ertapenem 1 gm/ Sodium (Chloride) 50 mls @ 100 mls/hr IV ONETIME ONE Stop: 07/15/19 15:29 Last Admin: 07/15/19 16:00 Dose: 100 mls/hr Ertapenem 1 gm/ Sodium (Chloride) 50 mls @ 100 mls/hr IV Q24H [facility] Last Admin: 07/17/19 15:53 Dose: 100 mls/hr Acetaminophen 1,000 mg/ Premix 100 mls @ 400 mls/hr IV Q6H [facility] Stop: 07/16/19 20:01 Last Admin: 07/15/19 22:34 Dose: Not Given Acetaminophen 1,000 mg/ Premix 100 mls @ 400 mls/hr IV Q6H [facility] Stop: 07/17/19 00:01 Last Admin: 07/16/19 06:05 Dose: 400 mls/hr Lactated Ringer's (Ringers, Lactated) 1,000 mls @ 999 mls/hr IV BOLUS ONE Stop: 07/16/19 10:35 Last Admin: 07/16/19 09:57 Dose: 999 mls/hr Lactated Ringer's (Ringers, Lactated) 1,000 mls @ 999 mls/hr IV BOLUS ONE Stop: 07/17/19 07:17 Last Admin: 07/17/19 06:32 Dose: 999 mls/hr Potassium Chloride/Dextrose/Sod Cl (D5 1/2 Ns W/ 20 Meq/L Kcl) 1,000 mls @ 150 mls/hr IV ASDIRECTED [facility] Last Admin: 07/18/19 05:12 Dose: 150 mls/hr Albumin Human (Flexbumin 5%) 250 mls @ 500 mls/hr IV ONETIME ONE Stop: 07/17/19 18:11 Last Admin: 07/17/19 18:40 Dose: 500 mls/hr Potassium Chloride/Dextrose/Sod Cl (D5 1/2 Ns W/ 20 Meq/L Kcl) 1,000 mls @ 125 mls/hr IV Q7H [facility] Last Admin: 07/20/19 10:57 Dose: Not Given Levofloxacin/Dextrose 750 mg/ (Premix) 150 mls @ 100 mls/hr IV Q24H [facility] Last Admin: 07/23/19 14:15 Dose: 100 mls/hr Metronidazole 500 mg/ Premix 100 mls @ 100 mls/hr IV Q8H [facility] Last Admin: 07/24/19 00:12 Dose: 100 mls/hr Potassium Chloride/Dextrose/Sod Cl (D5 1/2 Ns W/ 20 Meq/L Kcl) 1,000 mls @ 50 mls/hr IV Q8H [facility] Stop: 07/21/19 14:59 Last Admin: 07/20/19 22:10 Dose: 50 mls/hr Potassium Chloride/Dextrose/Sod Cl (D5 1/2 Ns W/ 20 Meq/L Kcl) 1,000 mls @ 50 mls/hr IV Q20H [facility] Last Admin: 07/23/19 10:29 Dose: 75 mls/hr Potassium Chloride/Dextrose/Sod Cl (D5 1/2 Ns W/ 20 Meq/L Kcl) 1,000 mls @ 75 mls/hr IV ASDIRECTED [facility] Last Admin: 07/24/19 02:34 Dose: 125 mls/hr Iopamidol (Isovue-370 (76%)) 100 ml IV . DIRECTED ONE Stop: 07/15/19 12:52 Last Admin: 07/15/19 13:34 Dose: 87 ml Ketorolac Tromethamine (Toradol) 30 mg IVPUSH Q6H [facility] Stop: 07/21/19 09:23 Last Admin: 07/21/19 03:33 Dose: 30 mg Lidocaine HCl (Glydo) 6 ml .XX STAT ONE Stop: 07/16/19 03:47 Last Admin: 07/16/19 04:00 Dose: 6 ml Lidocaine HCl (Glydo) 6 ml MM ONETIME ONE Stop: 07/16/19 11:38 Last Admin: 07/16/19 12:08 Dose: 6 ml Lidocaine HCl (Glydo) 6 ml .XX ONETIME ONE Stop: 07/17/19 11:10 Last Admin: 07/17/19 11:50 Dose: 6 ml Lidocaine/Epinephrine (Xylocaine 1% With Epinephrine 1:100,000) 10 ml INJECT .STK-MED ONE Stop: 07/15/19 17:33 Last Admin: 07/15/19 17:32 Dose: 10 ml Metoclopramide HCl (Reglan) 10 mg IVPUSH Q6H [facility] Last Admin: 07/24/19 02:34 Dose: 10 mg Morphine Sulfate (Morphine) 1 mg IVPUSH Q1H PRN PRN Reason: Pain Morphine Sulfate (Morphine) 2 mg IVPUSH Q2H PRN PRN Reason: Pain Last Admin: 07/18/19 04:49 Dose: 2 mg Morphine Sulfate (Morphine) 1 mg IVPUSH Q1H PRN PRN Reason: Abdominal Pain Last Admin: 07/18/19 10:26 Dose: 1 mg Morphine Sulfate (Morphine Scan Coordinator 30 Mg In 30 Ml) 0 mg IV ASDIRECTED PRN; Protocol PRN Reason: Pain (severe 7-10) Last Admin: 07/20/19 23:59 Dose: 30 mg Morphine Sulfate (Morphine) 1 mg IVPUSH Q1H PRN PRN Reason: Pain Last Admin: 07/22/19 20:29 Dose: 1 mg Pantoprazole Sodium (Protonix Iv) 40 mg IVPUSH Q24H [facility] Last Admin: 07/23/19 09:49 Dose: 40 mg - Exam Wound/Incisions: Healing Well General: Alert, Oriented, Cooperative, No Acute Distress Lungs: Clear to Auscultation, Normal Respiratory Effort, Decreased Breath Sounds (in basis better than yesterday ) GI/Abdominal Exam: Normal Bowel Sounds, Soft Skin: Warm, Dry, Intact - Problem List & Annotations (1) Acute appendicitis SNOMED Code(s): 45126651 Code(s): K35.80 - UNSPECIFIED ACUTE APPENDICITIS Status: Acute Current Visit: Yes Annotation/Comment:: ruputured retrocecal Qualifiers: Acute appendicitis type: with localized peritonitis Appendicitis gangrene presence: with gangrene Appendicitis perforation presence: with perforation Appendicitis abscess presence: with abscess Qualified Code(s): K35.31 - Acute appendicitis with localized peritonitis and gangrene, without perforation; K35.33 - Acute appendicitis with perforation and localized peritonitis, with abscess - Problem List Review Problem List Initiated/Reviewed/Updated: Yes - My Orders Last 24 Hours: Active Orders 24 hr Category Date Time Status Regular Diet [DIET] Diet 07/24/19 Lunch Ordered Acetaminophen/HYDROcodone [[place] 325-5 MG] Med 07/24/19 08:57 Ordered 1 tab PO Q4H PRN Celecoxib [CeleBREX] Med 07/24/19 09:00 Ordered 200 mg PO BID levoFLOXacin [Levaquin] Med 07/24/19 09:00 Ordered 750 mg PO Q24H metroNIDAZOLE [Flagyl] Med 07/24/19 09:00 Ordered 500 mg PO Q8H Convert IV to Saline Lock [OM.PC] Routine Oth 07/24/19 08:54 Ordered Medication Orders Hydrocodone Bitart/Acetaminophen ([place] 325-5 Mg) 1 tab PO Q4H PRN PRN Reason: Pain Celecoxib (Celebrex) 200 mg PO BID CLAUDIA Levofloxacin (Levaquin) 750 mg PO Q24H [facility] Metronidazole (Flagyl) 500 mg PO Q8H [facility] Naloxone HCl (Narcan) 0.4 mg IVPUSH Q2M PRN PRN Reason: Respiratory Distress Ondansetron HCl (Zofran) 4 mg IVPUSH Q6H PRN PRN Reason: Nausea/Vomiting Last Admin: 07/22/19 18:09 Dose: 4 mg Admin: 07/22/19 07:39 Dose: 4 mg Admin: 07/17/19 12:14 Dose: 4 mg Admin: 07/16/19 17:42 Dose: 4 mg Sodium Chloride (Saline Flush) 10 ml FLUSH ASDIRECTED PRN PRN Reason: Keep Vein Open Last Admin: 07/24/19 01:31 Dose: 10 ml Admin: 07/23/19 09:57 Dose: 10 ml Admin: 07/23/19 01:09 Dose: 10 ml Admin: 07/22/19 17:25 Dose: 10 ml Admin: 07/22/19 14:57 Dose: 10 ml Admin: 07/22/19 14:34 Dose: 10 ml Admin: 07/22/19 09:40 Dose: 10 ml Admin: 07/22/19 00:34 Dose: 10 ml Admin: 07/21/19 18:12 Dose: 10 ml Admin: 07/21/19 17:00 Dose: 10 ml Admin: 07/21/19 10:33 Dose: 10 ml Admin: 07/21/19 09:11 Dose: 10 ml Admin: 07/21/19 03:36 Dose: 10 ml Admin: 07/21/19 01:19 Dose: 10 ml Admin: 07/20/19 21:43 Dose: 10 ml Admin: 07/20/19 00:47 Dose: 10 ml Admin: 07/19/19 21:48 Dose: 10 ml Admin: 07/19/19 17:08 Dose: 10 ml Admin: 07/19/19 00:32 Dose: 10 ml - Plan Plan (Free Text/Narrative):: will advance diet change to po meds anticipate discharge in the am.
[2019-07-24] MEDS: metroNIDAZOLE 500 MG Tab PO SCH ×2 (09:27→17:02)
[2019-07-24] MEDS: Levofloxacin 750 MG Tab PO SCH (09:27)
[2019-07-24] MEDS ORDERED: Celecoxib 100 MG Cap ONE (10:09)
[2019-07-24] MEDS: Celecoxib 100 MG Cap PO SCH ×2 (10:20→20:24)
[2019-07-25] MEDS: metroNIDAZOLE 500 MG Tab PO SCH ×2 (01:12→08:47)
[2019-07-25] MEDS: Levofloxacin 750 MG Tab PO SCH (08:47)
[2019-07-25] MEDS ORDERED: Celecoxib 200 MG Cap PO SCH (09:00)
--- NOTE | 2019-07-25 09:25 | PCM.SURGPN ---
- General Info Date of Service: 07/25/19 Functional Status: Reports: Pain Controlled, Tolerating Diet, Ambulating, Urinating, Incentive Spirometry. Denies: New Symptoms - Patient Data Vitals - Most Recent: Last Vital Signs Temp 98 F 07/25/19 04:00 Pulse 92 07/25/19 04:00 Resp 18 07/25/19 04:00 BP 118/69 07/25/19 04:00 Pulse Ox 97 07/25/19 04:00 Weight - Most Recent: 77.746 kg Lab Results Last 24 Hrs: Laboratory Results - last 24 hr 07/25/19 Range/Units 06:25 WBC 9.7 (4.5-12.0) X10-3/uL RBC 4.17 L (4.30-5.75) x10(6)uL Hgb 11.4 L (13.5-17.8) g/dL Hct 33.6 (30.0-51.3) % MCV 80.5 (80-96) fL MCH 27.4 L (27.7-33.6) pg MCHC 34.1 (32.2-35.4) g/dL RDW 12.1 (11.5-15.5) % Plt Count 450 H (125-369) X10(3)uL MPV 7.3 L (7.4-10.4) fL Neut % (Auto) 73.9 (46-82) % Lymph % (Auto) 14.2 (13-37) % [place] % (Auto) 9.4 (4-12) % Eos % (Auto) 2 (1.0-5.0) % Baso % (Auto) 0 (0-2) % Neut # (Auto) 7.1 (1.6-8.3) # Lymph # (Auto) 1.4 (0.6-5.0) # [place] # (Auto) 0.9 (0.0-1.3) # Eos # (Auto) 0.2 (0.0-0.8) # Baso # (Auto) 0.0 (0.0-0.2) # Med Orders - Current: Current Medications Hydrocodone Bitart/Acetaminophen ([place] 325-5 Mg) 1 tab PO Q4H PRN PRN Reason: Pain Celecoxib (Celebrex) 200 mg PO BID CLAUDIA Last Admin: 07/25/19 08:52 Dose: 200 mg Levofloxacin (Levaquin) 750 mg PO Q24H [facility] Last Admin: 07/25/19 08:47 Dose: 750 mg Metronidazole (Flagyl) 500 mg PO Q8H [facility] Last Admin: 07/25/19 08:47 Dose: 500 mg Naloxone HCl (Narcan) 0.4 mg IVPUSH Q2M PRN PRN Reason: Respiratory Distress Ondansetron HCl (Zofran) 4 mg IVPUSH Q6H PRN PRN Reason: Nausea/Vomiting Last Admin: 07/22/19 18:09 Dose: 4 mg Sodium Chloride (Saline Flush) 10 ml FLUSH ASDIRECTED PRN PRN Reason: Keep Vein Open Last Admin: 07/24/19 09:27 Dose: 10 ml Discontinued Medications Albuterol/Ipratropium (Duoneb 3.0-0.5 Mg/3 Ml) 3 ml NEB Q6H [facility] Last Admin: 07/21/19 16:45 Dose: Not Given Bisacodyl (Dulcolax) 10 mg RECTAL ONETIME ONE Stop: 07/18/19 18:34 Last Admin: 07/18/19 19:33 Dose: 10 mg Bisacodyl (Dulcolax) 10 mg RECTAL ONETIME ONE Stop: 07/21/19 09:21 Last Admin: 07/21/19 10:15 Dose: 10 mg Bupivacaine HCl (Marcaine 0.5%) 10 ml INJECT .STK-MED ONE Stop: 07/15/19 17:33 Last Admin: 07/15/19 17:32 Dose: 10 ml Celecoxib (Celebrex) 200 mg PO BID [facility] Last Admin: 07/24/19 20:36 Dose: Not Given Celecoxib (Celebrex) Confirm Administered Dose 200 mg .ROUTE .STK-MED ONE Stop: 07/24/19 10:10 Last Admin: 07/24/19 10:21 Dose: Not Given Celecoxib (Celebrex) 200 mg PO BID [facility] Last Admin: 07/24/19 20:24 Dose: 200 mg Diatrizoate Meglum/Diatrizoate Sod (Gastrografin 37%) 30 ml PO . DIRECTED ONE Stop: 07/15/19 12:52 Last Admin: 07/15/19 13:34 Dose: 30 ml Hydromorphone HCl (Dilaudid) 2 mg IVPUSH Q1H PRN PRN Reason: Pain (severe 7-10) Last Admin: 07/17/19 04:48 Dose: 2 mg Lactated Ringer's (Ringers, Lactated) 1,000 mls @ 150 mls/hr IV ASDIRECTED [facility] Last Admin: 07/17/19 07:38 Dose: 150 mls/hr Ertapenem 1 gm/ Sodium (Chloride) 50 mls @ 100 mls/hr IV ONETIME ONE Stop: 07/15/19 15:29 Last Admin: 07/15/19 16:00 Dose: 100 mls/hr Ertapenem 1 gm/ Sodium (Chloride) 50 mls @ 100 mls/hr IV Q24H [facility] Last Admin: 07/17/19 15:53 Dose: 100 mls/hr Acetaminophen 1,000 mg/ Premix 100 mls @ 400 mls/hr IV Q6H [facility] Stop: 07/16/19 20:01 Last Admin: 07/15/19 22:34 Dose: Not Given Acetaminophen 1,000 mg/ Premix 100 mls @ 400 mls/hr IV Q6H [facility] Stop: 07/17/19 00:01 Last Admin: 07/16/19 06:05 Dose: 400 mls/hr Lactated Ringer's (Ringers, Lactated) 1,000 mls @ 999 mls/hr IV BOLUS ONE Stop: 07/16/19 10:35 Last Admin: 07/16/19 09:57 Dose: 999 mls/hr Lactated Ringer's (Ringers, Lactated) 1,000 mls @ 999 mls/hr IV BOLUS ONE Stop: 07/17/19 07:17 Last Admin: 07/17/19 06:32 Dose: 999 mls/hr Potassium Chloride/Dextrose/Sod Cl (D5 1/2 Ns W/ 20 Meq/L Kcl) 1,000 mls @ 150 mls/hr IV ASDIRECTED [facility] Last Admin: 07/18/19 05:12 Dose: 150 mls/hr Albumin Human (Flexbumin 5%) 250 mls @ 500 mls/hr IV ONETIME ONE Stop: 07/17/19 18:11 Last Admin: 07/17/19 18:40 Dose: 500 mls/hr Potassium Chloride/Dextrose/Sod Cl (D5 1/2 Ns W/ 20 Meq/L Kcl) 1,000 mls @ 125 mls/hr IV Q7H [facility] Last Admin: 07/20/19 10:57 Dose: Not Given Levofloxacin/Dextrose 750 mg/ (Premix) 150 mls @ 100 mls/hr IV Q24H [facility] Last Admin: 07/23/19 14:15 Dose: 100 mls/hr Metronidazole 500 mg/ Premix 100 mls @ 100 mls/hr IV Q8H [facility] Last Admin: 07/24/19 20:35 Dose: Not Given Potassium Chloride/Dextrose/Sod Cl (D5 1/2 Ns W/ 20 Meq/L Kcl) 1,000 mls @ 50 mls/hr IV Q8H [facility] Stop: 07/21/19 14:59 Last Admin: 07/20/19 22:10 Dose: 50 mls/hr Potassium Chloride/Dextrose/Sod Cl (D5 1/2 Ns W/ 20 Meq/L Kcl) 1,000 mls @ 50 mls/hr IV Q20H [facility] Last Admin: 07/23/19 10:29 Dose: 75 mls/hr Potassium Chloride/Dextrose/Sod Cl (D5 1/2 Ns W/ 20 Meq/L Kcl) 1,000 mls @ 75 mls/hr IV ASDIRECTED [facility] Last Admin: 07/24/19 02:34 Dose: 125 mls/hr Iopamidol (Isovue-370 (76%)) 100 ml IV . DIRECTED ONE Stop: 07/15/19 12:52 Last Admin: 07/15/19 13:34 Dose: 87 ml Ketorolac Tromethamine (Toradol) 30 mg IVPUSH Q6H [facility] Stop: 07/21/19 09:23 Last Admin: 07/21/19 03:33 Dose: 30 mg Lidocaine HCl (Glydo) 6 ml .XX STAT ONE Stop: 07/16/19 03:47 Last Admin: 07/16/19 04:00 Dose: 6 ml Lidocaine HCl (Glydo) 6 ml MM ONETIME ONE Stop: 07/16/19 11:38 Last Admin: 07/16/19 12:08 Dose: 6 ml Lidocaine HCl (Glydo) 6 ml .XX ONETIME ONE Stop: 07/17/19 11:10 Last Admin: 07/17/19 11:50 Dose: 6 ml Lidocaine/Epinephrine (Xylocaine 1% With Epinephrine 1:100,000) 10 ml INJECT .STK-MED ONE Stop: 07/15/19 17:33 Last Admin: 07/15/19 17:32 Dose: 10 ml Metoclopramide HCl (Reglan) 10 mg IVPUSH Q6H [facility] Last Admin: 07/24/19 20:35 Dose: Not Given Morphine Sulfate (Morphine) 1 mg IVPUSH Q1H PRN PRN Reason: Pain Morphine Sulfate (Morphine) 2 mg IVPUSH Q2H PRN PRN Reason: Pain Last Admin: 07/18/19 04:49 Dose: 2 mg Morphine Sulfate (Morphine) 1 mg IVPUSH Q1H PRN PRN Reason: Abdominal Pain Last Admin: 07/18/19 10:26 Dose: 1 mg Morphine Sulfate (Morphine Multi Line Claims Adjuster 30 Mg In 30 Ml) 0 mg IV ASDIRECTED PRN; Protocol PRN Reason: Pain (severe 7-10) Last Admin: 07/20/19 23:59 Dose: 30 mg Morphine Sulfate (Morphine) 1 mg IVPUSH Q1H PRN PRN Reason: Pain Last Admin: 07/22/19 20:29 Dose: 1 mg Pantoprazole Sodium (Protonix Iv) 40 mg IVPUSH Q24H [facility] Last Admin: 07/23/19 09:49 Dose: 40 mg - Exam Wound/Incisions: Healing Well, Other (granulation tissue in wounds packing was removed and wound edges were approximated ) Lungs: Clear to Auscultation, Normal Respiratory Effort Cardiovascular: Regular Rate, Regular Rhythm GI/Abdominal Exam: Normal Bowel Sounds, Soft, Non-Tender, No Distention, No Mass - Problem List & Annotations (1) Acute appendicitis SNOMED Code(s): 99760980 Code(s): K35.80 - UNSPECIFIED ACUTE APPENDICITIS Status: Acute Current Visit: Yes Annotation/Comment:: ruputured retrocecal Qualifiers: Acute appendicitis type: with localized peritonitis Appendicitis gangrene presence: with gangrene Appendicitis perforation presence: with perforation Appendicitis abscess presence: with abscess Qualified Code(s): K35.31 - Acute appendicitis with localized peritonitis and gangrene, without perforation; K35.33 - Acute appendicitis with perforation and localized peritonitis, with abscess - Problem List Review Problem List Initiated/Reviewed/Updated: Yes - My Orders Last 24 Hours: Active Orders 24 hr Category Date Time Status Regular Diet [DIET] Diet 07/24/19 Lunch Active Acetaminophen/HYDROcodone [[place] 325-5 MG] Med 07/24/19 08:57 Active 1 tab PO Q4H PRN Celecoxib [CeleBREX] Med 07/25/19 09:00 Active 200 mg PO BID levoFLOXacin [Levaquin] Med 07/24/19 09:00 Active 750 mg PO Q24H metroNIDAZOLE [Flagyl] Med 07/24/19 09:00 Active 500 mg PO Q8H Convert IV to Saline Lock [OM.PC] Routine Oth 07/24/19 08:54 Ordered Medication Orders Hydrocodone Bitart/Acetaminophen ([place] 325-5 Mg) 1 tab PO Q4H PRN PRN Reason: Pain Celecoxib (Celebrex) 200 mg PO BID [facility] Last Admin: 07/25/19 08:52 Dose: 200 mg Levofloxacin (Levaquin) 750 mg PO Q24H [facility] Last Admin: 07/25/19 08:47 Dose: 750 mg Admin: 07/24/19 09:27 Dose: 750 mg Metronidazole (Flagyl) 500 mg PO Q8H [facility] Last Admin: 07/25/19 08:47 Dose: 500 mg Admin: 07/25/19 01:12 Dose: 500 mg Admin: 07/24/19 17:02 Dose: 500 mg Admin: 07/24/19 09:27 Dose: 500 mg Naloxone HCl (Narcan) 0.4 mg IVPUSH Q2M PRN PRN Reason: Respiratory Distress Ondansetron HCl (Zofran) 4 mg IVPUSH Q6H PRN PRN Reason: Nausea/Vomiting Last Admin: 07/22/19 18:09 Dose: 4 mg Admin: 07/22/19 07:39 Dose: 4 mg Admin: 07/17/19 12:14 Dose: 4 mg Admin: 07/16/19 17:42 Dose: 4 mg Sodium Chloride (Saline Flush) 10 ml FLUSH ASDIRECTED PRN PRN Reason: Keep Vein Open Last Admin: 07/24/19 09:27 Dose: 10 ml Admin: 07/24/19 01:31 Dose: 10 ml Admin: 07/23/19 09:57 Dose: 10 ml Admin: 07/23/19 01:09 Dose: 10 ml Admin: 07/22/19 17:25 Dose: 10 ml Admin: 07/22/19 14:57 Dose: 10 ml Admin: 07/22/19 14:34 Dose: 10 ml Admin: 07/22/19 09:40 Dose: 10 ml Admin: 07/22/19 00:34 Dose: 10 ml Admin: 07/21/19 18:12 Dose: 10 ml Admin: 07/21/19 17:00 Dose: 10 ml Admin: 07/21/19 10:33 Dose: 10 ml Admin: 07/21/19 09:11 Dose: 10 ml Admin: 07/21/19 03:36 Dose: 10 ml Admin: 07/21/19 01:19 Dose: 10 ml Admin: 07/20/19 21:43 Dose: 10 ml Admin: 07/20/19 00:47 Dose: 10 ml Admin: 07/19/19 21:48 Dose: 10 ml Admin: 07/19/19 17:08 Dose: 10 ml Admin: 07/19/19 00:32 Dose: 10 ml - Assessment Assessment (Free Text/Narrative):: ready for discharge
--- NOTE | 2019-07-25 09:45 | PCM.DCSUM1 ---
Discharge Summary - Hospital Course Diagnosis: Stroke: No - Discharge Data Discharge Date: 07/25/19 Discharge Disposition: Home, Self-Care 01 Condition: Good - Referral to Home Health Primary Care Physician: PCP Unknown - Discharge Diagnosis/Problem(s) (1) Acute appendicitis SNOMED Code(s): 59000378 ICD Code: K35.80 - UNSPECIFIED ACUTE APPENDICITIS Status: Resolved Current Visit: Yes Problem Details: ruputured retrocecal Qualifiers: Acute appendicitis type: with localized peritonitis Appendicitis gangrene presence: with gangrene Appendicitis perforation presence: with perforation Appendicitis abscess presence: with abscess Qualified Code(s): K35.31 - Acute appendicitis with localized peritonitis and gangrene, without perforation; K35.33 - Acute appendicitis with perforation and localized peritonitis, with abscess (2) Post-op pneumonia SNOMED Code(s): 979004627 ICD Code: J95.89 - OTH POSTPROC COMPLICATIONS AND DISORDERS OF RESP SYS, NEC ; J18.9 - PNEUMONIA, UNSPECIFIED ORGANISM Status: Resolved Current Visit: Yes Problem Details: bilateral bibasilar consolidation no cough but did have fever as well as elevated wbc treated emperically - Patient Summary/Data Operative Procedure(s) Performed: appendectomy Consults: Consultations 07/20/19 11:28 OT Evaluation and Treatment [CONS] Routine Please Evaluate and Treat. OT Reason for Consult: Other (Type Response) Special Instructions: TENS unit treatment This query below is only for informational purposes and is not editable. Admission Diagnosis/Problem: Appendicitis Hospital Course: Pt was admitted and underwent a appendectomy that was started as a laparoscopic approach and was converted to an open procedure. Post operative course was notable for urinary retention and emesis. This was treated with NGT and rene catheter with good results. Abd distention and pain resulted in poor inspiratory effort this was despite IS, and ambulation resulting in decreased breath sounds. A post op CXR demonstrated some bilateral consolidation in lower lung hicks and despite no cough and a normal wbc his antibiotic coverage was broadened to cover a potential pneumonia. WBC did fluctuate. CONSOLIDATOR and nebs were initiated. He did have some tachycardia as a result which as of no consequence and resolved on cessation of the nebs. Wounds were treated with packing of AquaCel Ag and dressing changes. SELVIN drain was removed. Return of bowel function was slow and a TENS and reglan was initiated with good results. With the return of bowel function diet was advanced with two episodes of emesis. This was not a intermediate teacher issue. On day of discharge wounds were approximated as granulation tissue was present. - Patient Instructions Diet: Usual Diet as Tolerated, No Alcoholic Beverages Activity: No Lifting Over 25 Pounds, No Strenuous Activities Driving: Do Not Drive Showering/Bathing: May Shower Showering/Bathing, Other: wound may get wet do not scrub sites Notify Provider of: Fever, Swelling and Redness, Drainage - Discharge Plan *PRESCRIPTION DRUG MONITORING PROGRAM REVIEWED*: No *COPY OF PRESCRIPTION DRUG MONITORING REPORT IN PATIENT PRICILLA: No Prescriptions/Med Rec: Acetaminophen/HYDROcodone [[place] 325-5 MG] 1 tab PO Q4H PRN #10 tablet PRN Reason: Pain Celecoxib [CeleBREX] 200 mg PO BID #10 cap Home Medications: Home Meds Acetaminophen/HYDROcodone [[place] 325-5 MG] 1 tab PO Q4H PRN #10 tablet 07/25/19 [Rx] Celecoxib [CeleBREX] 200 mg PO BID #10 cap 07/25/19 [Rx] Referrals: Giovani Quick MD [Physician] - 07/29/19 - Discharge Summary/Plan Comment DC Time >30 min.: Yes - Patient Data Vitals - Most Recent: Last Vital Signs Temp 98 F 07/25/19 04:00 Pulse 92 07/25/19 04:00 Resp 18 07/25/19 04:00 BP 118/69 07/25/19 04:00 Pulse Ox 97 07/25/19 04:00 Weight - Most Recent: 77.746 kg Lab Results - Last 24 hrs: Laboratory Results - last 24 hr 07/25/19 Range/Units 06:25 WBC 9.7 (4.5-12.0) X10-3/uL RBC 4.17 L (4.30-5.75) x10(6)uL Hgb 11.4 L (13.5-17.8) g/dL Hct 33.6 (30.0-51.3) % MCV 80.5 (80-96) fL MCH 27.4 L (27.7-33.6) pg MCHC 34.1 (32.2-35.4) g/dL RDW 12.1 (11.5-15.5) % Plt Count 450 H (125-369) X10(3)uL MPV 7.3 L (7.4-10.4) fL Neut % (Auto) 73.9 (46-82) % Lymph % (Auto) 14.2 (13-37) % [place] % (Auto) 9.4 (4-12) % Eos % (Auto) 2 (1.0-5.0) % Baso % (Auto) 0 (0-2) % Neut # (Auto) 7.1 (1.6-8.3) # Lymph # (Auto) 1.4 (0.6-5.0) # [place] # (Auto) 0.9 (0.0-1.3) # Eos # (Auto) 0.2 (0.0-0.8) # Baso # (Auto) 0.0 (0.0-0.2) # Med Orders - Current: Current Medications Hydrocodone Bitart/Acetaminophen ([place] 325-5 Mg) 1 tab PO Q4H PRN PRN Reason: Pain Celecoxib (Celebrex) 200 mg PO BID [facility] Last Admin: 07/25/19 08:52 Dose: 200 mg Levofloxacin (Levaquin) 750 mg PO Q24H [facility] Last Admin: 07/25/19 08:47 Dose: 750 mg Metronidazole (Flagyl) 500 mg PO Q8H [facility] Last Admin: 07/25/19 08:47 Dose: 500 mg Naloxone HCl (Narcan) 0.4 mg IVPUSH Q2M PRN PRN Reason: Respiratory Distress Ondansetron HCl (Zofran) 4 mg IVPUSH Q6H PRN PRN Reason: Nausea/Vomiting Last Admin: 07/22/19 18:09 Dose: 4 mg Sodium Chloride (Saline Flush) 10 ml FLUSH ASDIRECTED PRN PRN Reason: Keep Vein Open Last Admin: 07/24/19 09:27 Dose: 10 ml Discontinued Medications Albuterol/Ipratropium (Duoneb 3.0-0.5 Mg/3 Ml) 3 ml NEB Q6H [facility] Last Admin: 07/21/19 16:45 Dose: Not Given Bisacodyl (Dulcolax) 10 mg RECTAL ONETIME ONE Stop: 07/18/19 18:34 Last Admin: 07/18/19 19:33 Dose: 10 mg Bisacodyl (Dulcolax) 10 mg RECTAL ONETIME ONE Stop: 07/21/19 09:21 Last Admin: 07/21/19 10:15 Dose: 10 mg Bupivacaine HCl (Marcaine 0.5%) 10 ml INJECT .STK-MED ONE Stop: 07/15/19 17:33 Last Admin: 07/15/19 17:32 Dose: 10 ml Celecoxib (Celebrex) 200 mg PO BID [facility] Last Admin: 07/24/19 20:36 Dose: Not Given Celecoxib (Celebrex) Confirm Administered Dose 200 mg .ROUTE .STK-MED ONE Stop: 07/24/19 10:10 Last Admin: 07/24/19 10:21 Dose: Not Given Celecoxib (Celebrex) 200 mg PO BID [facility] Last Admin: 07/24/19 20:24 Dose: 200 mg Diatrizoate Meglum/Diatrizoate Sod (Gastrografin 37%) 30 ml PO . DIRECTED ONE Stop: 07/15/19 12:52 Last Admin: 07/15/19 13:34 Dose: 30 ml Hydromorphone HCl (Dilaudid) 2 mg IVPUSH Q1H PRN PRN Reason: Pain (severe 7-10) Last Admin: 07/17/19 04:48 Dose: 2 mg Lactated Ringer's (Ringers, Lactated) 1,000 mls @ 150 mls/hr IV ASDIRECTED [facility] Last Admin: 07/17/19 07:38 Dose: 150 mls/hr Ertapenem 1 gm/ Sodium (Chloride) 50 mls @ 100 mls/hr IV ONETIME ONE Stop: 07/15/19 15:29 Last Admin: 07/15/19 16:00 Dose: 100 mls/hr Ertapenem 1 gm/ Sodium (Chloride) 50 mls @ 100 mls/hr IV Q24H [facility] Last Admin: 07/17/19 15:53 Dose: 100 mls/hr Acetaminophen 1,000 mg/ Premix 100 mls @ 400 mls/hr IV Q6H [facility] Stop: 07/16/19 20:01 Last Admin: 07/15/19 22:34 Dose: Not Given Acetaminophen 1,000 mg/ Premix 100 mls @ 400 mls/hr IV Q6H [facility] Stop: 07/17/19 00:01 Last Admin: 07/16/19 06:05 Dose: 400 mls/hr Lactated Ringer's (Ringers, Lactated) 1,000 mls @ 999 mls/hr IV BOLUS ONE Stop: 07/16/19 10:35 Last Admin: 07/16/19 09:57 Dose: 999 mls/hr Lactated Ringer's (Ringers, Lactated) 1,000 mls @ 999 mls/hr IV BOLUS ONE Stop: 07/17/19 07:17 Last Admin: 07/17/19 06:32 Dose: 999 mls/hr Potassium Chloride/Dextrose/Sod Cl (D5 1/2 Ns W/ 20 Meq/L Kcl) 1,000 mls @ 150 mls/hr IV ASDIRECTED [facility] Last Admin: 07/18/19 05:12 Dose: 150 mls/hr Albumin Human (Flexbumin 5%) 250 mls @ 500 mls/hr IV ONETIME ONE Stop: 07/17/19 18:11 Last Admin: 07/17/19 18:40 Dose: 500 mls/hr Potassium Chloride/Dextrose/Sod Cl (D5 1/2 Ns W/ 20 Meq/L Kcl) 1,000 mls @ 125 mls/hr IV Q7H [facility] Last Admin: 07/20/19 10:57 Dose: Not Given Levofloxacin/Dextrose 750 mg/ (Premix) 150 mls @ 100 mls/hr IV Q24H [facility] Last Admin: 07/23/19 14:15 Dose: 100 mls/hr Metronidazole 500 mg/ Premix 100 mls @ 100 mls/hr IV Q8H [facility] Last Admin: 07/24/19 20:35 Dose: Not Given Potassium Chloride/Dextrose/Sod Cl (D5 1/2 Ns W/ 20 Meq/L Kcl) 1,000 mls @ 50 mls/hr IV Q8H [facility] Stop: 07/21/19 14:59 Last Admin: 07/20/19 22:10 Dose: 50 mls/hr Potassium Chloride/Dextrose/Sod Cl (D5 1/2 Ns W/ 20 Meq/L Kcl) 1,000 mls @ 50 mls/hr IV Q20H [facility] Last Admin: 07/23/19 10:29 Dose: 75 mls/hr Potassium Chloride/Dextrose/Sod Cl (D5 1/2 Ns W/ 20 Meq/L Kcl) 1,000 mls @ 75 mls/hr IV ASDIRECTED [facility] Last Admin: 07/24/19 02:34 Dose: 125 mls/hr Iopamidol (Isovue-370 (76%)) 100 ml IV . DIRECTED ONE Stop: 07/15/19 12:52 Last Admin: 07/15/19 13:34 Dose: 87 ml Ketorolac Tromethamine (Toradol) 30 mg IVPUSH Q6H [facility] Stop: 07/21/19 09:23 Last Admin: 07/21/19 03:33 Dose: 30 mg Lidocaine HCl (Glydo) 6 ml .XX STAT ONE Stop: 07/16/19 03:47 Last Admin: 07/16/19 04:00 Dose: 6 ml Lidocaine HCl (Glydo) 6 ml MM ONETIME ONE Stop: 07/16/19 11:38 Last Admin: 07/16/19 12:08 Dose: 6 ml Lidocaine HCl (Glydo) 6 ml .XX ONETIME ONE Stop: 07/17/19 11:10 Last Admin: 07/17/19 11:50 Dose: 6 ml Lidocaine/Epinephrine (Xylocaine 1% With Epinephrine 1:100,000) 10 ml INJECT .STK-MED ONE Stop: 07/15/19 17:33 Last Admin: 07/15/19 17:32 Dose: 10 ml Metoclopramide HCl (Reglan) 10 mg IVPUSH Q6H [facility] Last Admin: 07/24/19 20:35 Dose: Not Given Morphine Sulfate (Morphine) 1 mg IVPUSH Q1H PRN PRN Reason: Pain Morphine Sulfate (Morphine) 2 mg IVPUSH Q2H PRN PRN Reason: Pain Last Admin: 07/18/19 04:49 Dose: 2 mg Morphine Sulfate (Morphine) 1 mg IVPUSH Q1H PRN PRN Reason: Abdominal Pain Last Admin: 07/18/19 10:26 Dose: 1 mg Morphine Sulfate (Morphine [employer]ester 30 Mg In 30 Ml) 0 mg IV ASDIRECTED PRN; Protocol PRN Reason: Pain (severe 7-10) Last Admin: 07/20/19 23:59 Dose: 30 mg Morphine Sulfate (Morphine) 1 mg IVPUSH Q1H PRN PRN Reason: Pain Last Admin: 07/22/19 20:29 Dose: 1 mg Pantoprazole Sodium (Protonix Iv) 40 mg IVPUSH Q24H [facility] Last Admin: 07/23/19 09:49 Dose: 40 mg *Q Meaningful Use (DIS) - VTE *Q VTE Pharmacological Contraindications *Q: Patient Scheduled Surgery
== END 2019-07-25 11:45 | disposition home or self-care (01) | DRG 338 ==
LOC: FB.SDS 14:00 → FB.MS 14:01 → FB.SDS 14:11 → FB.MS 14:11
PROVIDERS: ADMIT Surgery; ATTEND Surgery
PROC: 0DTJ0ZZ Resection of Appendix, Open Approach (ICD-10-PCS; principal; 2019-07-15)
PROC: 0WJG4ZZ Inspection of Peritoneal Cavity, Percutaneous Endoscopic Approach (ICD-10-PCS; 2019-07-15)
DX: K35.32 Acute appendicitis with perforation, localized peritonitis, and gangrene, without abscess (principal); J18.9 Pneumonia, unspecified organism; J95.89 Other postprocedural complications and disorders of respiratory system, not elsewhere classified; R33.9 Retention of urine, unspecified; R00.0 Tachycardia, unspecified; Z53.31 Laparoscopic surgical procedure converted to open procedure
CPT/HCPCS: 36415; 51701; 51702; 51798; 71046; 74177; 80048; 81001; 85025; 88304; 93005; 94150; 94640; 97165-GO; A9270-GY; C9113; J0131; J0330; J1100; J1170; J1335; J1885; J1956; J2001; J2250; J2270; J2274; J2370; J2405; J2704; J2765; J3010; J3480; J3490; J7050; J7120; J7620-GY; P9045; Q9963; Q9967